=== PATIENT | female | born 1955 | race African-American/Black ===

== ENCOUNTER → 2017-02-12 | Outpatient (CLI) | payer BC ==
[~2017-02-12] MED LIST: BNC/20125 PO; MONT1TAB3 PO
== END | disposition home or self-care (01) ==
LOC: C.PAPS 16:38
PROVIDERS: ATTEND Obstetrics & Gynecology
DX: Z01.419 Encounter for gynecological examination (general) (routine) without abnormal findings (principal)

== ENCOUNTER 2018-01-04 15:57 | Inpatient (IN) | payer BC, OTHER ==
[~2018-01-04] VITALS: Ht 162.6 cm; Wt 106.3 kg
[2018-01-04] MEDS ORDERED: SODIUM CHLORIDE 0.9% 1000ML 1,000 ML IV STA (16:21)
[2018-01-04] MEDS ORDERED: ACETAMINOPHEN 500 MG TAB PO STA (16:45)
--- NOTE | 2018-01-04 17:00 | EMERGENCY ROOM VISIT NOTE ---
History Report prepared by Ana: Derek Renee Under the Supervision of: Dr. Cassi Breaux M.D. First contact with patient: 16:21 Chief Complaint: REFERRED BY DOCTOR Stated Complaint: DYHYDRATED, REF BY DOC History of Present Illness The patient is a 62 year old female who presents to the Emergency Room with complaints of constant weakness beginning a few days ago. She currently rates her discomfort a 7/10 in severity. The patient states she was in [place] ( [facility] and [facility]) for three weeks. She reports she returned recently and has felt sick since. The patient notes she has been very weak and sometimes needs assistance getting standing up. She states she has a headache, and her nose is draining into her stomach. The patient reports she has abdominal discomfort from the drainage. She notes she vomited three days ago, and she has not vomited since. The patient states she was evaluated by her PCP this morning and was told she had a fever of 103. She reports she took her blood pressure medication and sinus medication. The patient notes she did not take Tylenol because she was afraid to take too much medication at one time because she is nauseous. She states she grew up in the areas she was visiting, and she has been immunized. She reports she still has her gallbladder, and she occasionally has pain there. The patient denies shortness of breath, passing blood in stool, diarrhea, coughing, trouble urinating, and burning with urination. Source of History: patient Onset: a few days ago Symptom Intensity: 7/10 Quality: other (weakness) Timing: constant Associated Symptoms: + fevers, + headache, + vomiting, No cough, No SOB, No diarrhea, No urinary symptoms Note: Associated symptoms: post nasal drip Denies: blood in stool Review of Systems See HPI for pertinent positives & negatives. A total of 10 systems reviewed and were otherwise negative. Past Medical & Surgical Medical Problems: (1) HTN (hypertension) (2) Sepsis Family History Patient reports no known family medical history. Social History Smoking Status: Never Smoker Marital Status: Housing Status: lives with significant other Occupation Status: employed Current/Historical Medications Scheduled Montelukast Sodium (Singulair), 10 MG PO DAILY Olmesartan/Hctz (Benicar Hct 20/12.5), 1 TAB PO DAILY Allergies Coded Allergies: Metronidazole (Verified Adverse Reaction, Mild, GI DISTRESS, 2/10/25) No Known Allergies (Verified , 01/06/14) Physical Exam Vital Signs Date Time Temp Pulse Resp B/P (MAP) Pulse Ox O2 Delivery O2 Flow Rate FiO2 01/04/18 21:19 80 20 108/75 97 Room Air 01/04/18 19:32 86 01/04/18 19:27 37.3 86 18 100/73 94 Room Air 01/04/18 18:36 91 16 107/66 95 Room Air 01/04/18 17:18 101 18 151/93 91 Room Air 01/04/18 16:01 39.3 117 20 123/82 94 Room Air Physical Exam Vital signs reviewed. Noted to be febrile. General: Well-appearing 62 year old female, in no significant distress. HEENT: No scleral icterus, PERRLA, neck supple. Atraumatic. Cardiovascular: Tachycardic rate and regular rhythm, no extra sounds. Pulmonary: Crackles at the bases bilaterally, normal work of breathing. Abdomen: Soft, mild RUQ tender, nondistended, positive bowel sounds. Musculoskeletal: Atraumatic, no peripheral edema. Neurologic: Patient awake alert and oriented x 3, full strength in all 4 extremities. Cranial nerves 2 through 12 grossly intact. Skin: Warm, dry, no rash Medical Decision & Procedures ER Provider Diagnostic Interpretation: Radiology results as stated below per my review and radiologist interpretation: CHEST ONE VIEW PORTABLE HISTORY: 62 years-old Female fever acute fever COMPARISON: None available TECHNIQUE: Portable AP view of the chest FINDINGS: Patient is slightly rotated to the right. Cardiac silhouette is enlarged. There is widening of the upper mediastinum. No pneumothorax or large pleural effusion. Subsegmental bibasilar opacities. Mild pulmonary vascular congestion without overt pulmonary edema. IMPRESSION: 1. Cardiomegaly with pulmonary vascular congestion. 2. Subsegmental bibasilar opacities suggest atelectasis with pneumonitis also within the differential. The above report was generated using voice recognition software. It may contain grammatical, syntax or spelling errors. Electronically signed by: Rian Bangura M.D. 01/04/2018 5:15 PM Dictated Date/Time: 01/04/2018 5:13 PM SINUSES-MAXILLOFACIAL W/O HISTORY: 62 years-old Female sinusitis, fever acute sinusitis with fever COMPARISON: None available TECHNIQUE: Multiple axial CT images of the paranasal sinuses and maxillofacial bones were obtained without use of IV contrast. A dose lowering technique was used consistent with the principals of YESENIA. FINDINGS: Imaged intracranial structures demonstrate no acute abnormality. Tonsillar calcifications are incidentally noted. Note is made of disconjugate gaze. The bilateral orbits and globes are otherwise unremarkable. Soft tissues are within normal limits. No calvarial fracture identified. The mastoid air cells and middle ear cavities are clear. There is mild mucoperiosteal thickening about the maxillary and ethmoid sinuses. The frontal sinuses and sphenoid sinuses are generally clear. Mild mucosal thickening about the nasal turbinates. Minimal leftward spurring about the nasal septum. There is been prior bilateral maxillary antrostomy. Frontoethmoidal and sphenoethmoidal recesses are patent. There is no acute facial bone fracture or dislocation identified. There are degenerative changes noted about the bilateral temporal mandibular joints. IMPRESSION: 1. Mild maxillary and ethmoid sinus disease. 2. Prior bilateral maxillary antrostomy. 3. Patency of the sinus outflow tracts. 4. Incidental note is made of bilateral palatine tonsilliths. The above report was generated using voice recognition software. It may contain grammatical, syntax or spelling errors. Electronically signed by: Rian Bangura M.D. 01/04/2018 6:10 PM Dictated Date/Time: 01/04/2018 6:02 PM ABDOMINAL ULTRASOUND, RIGHT UPPER QUADRANT HISTORY: ] Quadrant abdominal pain. cholecystitis. COMPARISON: None. FINDINGS: Pancreas: Obscured by overlying bowel gas. Liver: Unremarkable. Gallbladder: No gallbladder wall thickening. Trace sludge versus small stones within the gallbladder. CBD: 2 mm. Right kidney: No hydronephrosis. IMPRESSION: 1. No gallbladder wall thickening. Trace sludge versus small stones within the gallbladder. 2. Normal caliber common bile duct. Electronically signed by: Deepak England M.D. 01/04/2018 7:13 PM Dictated Date/Time: 01/04/2018 7:12 PM Laboratory Results Test 01/04/18 16:31 01/04/18 16:35 01/04/18 17:07 01/04/18 17:19 Toxic Vacuolation 1+ Peripheral Blood Smear Path Consult Magnesium Level 2.1 mg/dl (1.8-2.4) Direct Bilirubin 2.3 mg/dl (0-0.2) Total Creatine Kinase 676 U/L (26-192) Lipase 231 U/L (73-393) Thyroid Stimulating Hormone (TSH) 0.454 uIu/ml (0.300-4.500) Influenza Type A (RT-PCR) Neg for Influ A (NEG) Influenza Type B (RT-PCR) Neg for Influ B (NEG) Bedside Lactic Acid Venous 1.75 mmol/L (0.90-1.70) Urine Color DK YELLOW Urine Appearance CLOUDY (CLEAR) Urine pH 6.0 (4.5-7.5) Urine Specific Green 1.023 (1.000-1.030) Urine Protein 1+ (NEG) Urine Glucose (UA) NEG (NEG) Urine Ketones 1+ (NEG) Urine Occult Blood 3+ (NEG) Urine Nitrite POS (NEG) Urine Bilirubin NEG (NEG) Urine Urobilinogen POS (NEG) Urine Leukocyte Esterase MODERATE (NEG) Urine WBC (Auto) 10-30 /hpf (0-5) Urine RBC (Auto) 5-10 /hpf (0-4) Urine Hyaline Casts (Auto) 1-5 /lpf (0-5) Urine Epithelial Cells (Auto) >30 /lpf (0-5) Urine Bacteria (Auto) 1+ (NEG) Urine Pathogenic Casts /lpf (0) Urine Yeast (Auto) PRESENT (NONE PRSENT) Test 01/04/18 20:18 Prothrombin Time 12.8 SECONDS (9.0-12.0) Prothromb Time International Ratio 1.2 (0.9-1.1) Activated Partial Thromboplast Time 28.9 SECONDS (21.0-31.0) Partial Thromboplastin Ratio 1.1 Lactic Acid Level 1.4 mmol/L (0.4-2.0) Procalcitonin 4.35 ng/ml (0-0.5) Date/Time Source Procedure Growth Status 01/04/18 17:19 Urine , Clean Catch Urine Culture - Final MORE THAN THREE TYPES OF ORGANISMS SC... Complete Laboratory results per my review. Medications Administered Medications (Trade) Dose Ordered Sig/Osmar Route Start Time Stop Time Status Last Admin Dose Admin Sodium Chloride 1,000 ml @ 999 mls/hr Q1H1M STAT IV 01/04/18 16:21 01/04/18 17:21 DC 01/04/18 16:21 999 MLS/HR Acetaminophen 100 ml @ 400 mls/hr NOW STAT IV 01/04/18 17:01 01/04/18 17:15 DC 01/04/18 17:01 400 MLS/HR Potassium Chloride 100 ml @ 100 mls/hr NOW STAT IV 01/04/18 18:10 01/04/18 19:09 DC 01/04/18 18:31 100 MLS/HR Hydroxychloroquine Sulfate (Plaquenil Tab) 800 mg NOW ONCE PO 01/04/18 19:00 01/04/18 19:01 DC 01/04/18 20:18 800 MG Ceftriaxone Sodium (Rocephin Inj) 1 gm NOW STAT IV 01/04/18 19:10 01/04/18 19:11 DC 01/04/18 20:19 1 GM ECG Per My Interpretation Indication: vomiting, other (febrile) Rate (beats per minute): 103 Rhythm: sinus tachycardia Findings: other (Likely previous anterior infarct. T-wave abnormality anteriorly and laterally.) ED Course 1640: Past medical records reviewed. The patient was evaluated in room C05. A complete history and physical examination was performed. 1: I discussed the patient's case with Dr. Damon, [facility]. The patient can started hydroxychloroquine now and then the Primaquine as an outpatient. 1913: Upon reevaluation, the patient is resting comfortably. I discussed laboratory and radiographic results with her. She verbalized agreement of the treatment plan. The patient will be evaluated for further management and care. 1924: I discussed the patient's case with Dr. Omalley, [facility] Hospitalist. The patient will be evaluated for further management and care. Medical Decision Differential diagnoses: Influenza, other viral illness, pneumonia, urinary tract infection, metabolic abnormality, medication effect, cellulitis, meningitis, intra-abdominal source, parasitic infection. This patient was evaluated and appeared to be in no significant access was obtained and laboratory work was drawn. Patient is noted to be febrile. Blood cultures and lactate were performed. She was given IV Tylenol for fever. Lactate is normal. Chest x-ray is clear. Patient is noted to have a normal white blood cell count and thrombocytopenia to 58,000. Potassium is low and was repleted with IV potassium. UA is concerning for infection, sent for culture. IV ceftriaxone was ordered. On a thin smear, pathology, Dr. Palomares is seen less than 1% of the RBCs affected by malaria. He suspects a non- Plasmodium falciparum species, but this will be sent out for further identification. Given the region that the patient has been visiting and the findings on smear, between infectious disease, Dr. Damon and pharmacy, hydroxychloroquine was initiated. The Primaquine that is not available at this hospital can be initiated as an outpatient according to ID. The patient and were made aware of the findings. CT scan of the head and sinuses was performed due to the headache and postnasal drip complaints. There is no acute ultrasound the right upper quadrant was performed due to the elevated liver enzymes. There is no evidence of acute cholecystitis this is likely secondary to the malarial illness. The patient did have some improvement in clinical picture. Case was discussed with the hospitalist service. She will be admitted for further management. Medication Reconcilliation Current Medication List: was personally reviewed by me Blood Pressure Screening Patient's blood pressure: Normal blood pressure Blood pressure disposition: Did not require urgent referral Consults Time Called: 1813 Consulting Physician: MARIA DEL ROSARIO Diggs Returned Call: 1840 I discussed the patient's case with MARIA DEL ROSARIO Diggs. The patient can started hydroxychloroquine now and then the Primaquine as an outpatient. Additional Consults: Time Called: 1903 Consulted Physician: [facility] Hospitalist Returned Call: 1924 Additional Comments: I discussed the patient's case [facility] The patient will be evaluated for further management and care. Impression Primary Impression: Malaria Additional Impressions: Acute hepatitis Hyponatremia Hypokalemia UTI (urinary tract infection) Scribe Attestation The scribe's documentation has been prepared under my direction and personally reviewed by me in its entirety. I confirm that the note above accurately reflects all work, treatment, procedures, and medical decision making performed by me. Departure Information Dispostion Being Evaluated By Hospitalist Referrals Farrukh Asher M.D. (PCP) Patient Instructions [facility] Problem Qualifiers
[2018-01-04] MEDS ORDERED: ACETAMINOPHEN IV 100 ML IV STA (17:01)
[2018-01-04 17:15] LABS: ALBUMIN 2.7 gm/dl (3.4-5.0); CALCIUM 7.7 mg/dl (8.5-10.1); CREATININE 1.32 mg/dl (0.60-1.20); POTASSIUM 2.9 mmol/L (3.5-5.1); TOTAL PROTEIN 7.3 gm/dl (6.4-8.2)
--- NOTE | 2018-01-04 17:16 | DIAGNOSTIC IMAGING REPORT ---
CHEST ONE VIEW PORTABLE HISTORY: 62 years-old Female fever acute fever COMPARISON: None available TECHNIQUE: Portable AP view of the chest FINDINGS: Patient is slightly rotated to the right. Cardiac silhouette is enlarged. There is widening of the upper mediastinum. No pneumothorax or large pleural effusion. Subsegmental bibasilar opacities. Mild pulmonary vascular congestion without overt pulmonary edema. IMPRESSION: 1. Cardiomegaly with pulmonary vascular congestion. 2. Subsegmental bibasilar opacities suggest atelectasis with pneumonitis also within the differential. The above report was generated using voice recognition software. It may contain grammatical, syntax or spelling errors. Electronically signed by: Rian Bangura M.D. 01/04/2018 5:15 PM Dictated Date/Time: 01/04/2018 5:13 PM
[2018-01-04 17:28] LABS: HEMATOCRIT 41.4 % (37-47); HEMOGLOBIN 14.5 g/dL (12.0-16.0); MEAN CELL VOLUME 87.2 fL (80-100); MEAN CORPUSCULAR HEMOGLOBIN 30.5 pg (25-34); RED CELL DISTRIBUTION WIDTH CV 12.8 % (11.5-14.5); RED CELL DISTRIBUTION WIDTH SD 41.2 fL (36.4-46.3)
[2018-01-04 17:31] LABS: MEAN PLATELET VOLUME 12.3 fL (7.4-10.4); PLATELET COUNT 58 K/uL (130-400)
[2018-01-04 17:35] LABS: BASO % 1.3 %; BASO ABS # 0.08 K/uL (0-0.2); EOS % 0.8 %; EOS ABS # 0.05 K/uL (0-0.5); IG# 0.02 K/uL (0.00-0.02); LYMPH % 7.7 %; LYMPH ABS # 0.48 K/uL (1.2-3.4); MONO % 15.6 %; MONO ABS # 0.97 K/uL (0.11-0.59); NEUT % 74.3 %
[2018-01-04] MEDS ORDERED: POTASSIUM CHLR 10 MEQ / WTR 100 ML IV STA (18:10)
[2018-01-04 18:11] LABS: INFLUENZA A PCR Neg for Influ A (NEG); INFLUENZA B PCR Neg for Influ B (NEG)
--- NOTE | 2018-01-04 18:11 | DIAGNOSTIC IMAGING REPORT ---
SINUSES-MAXILLOFACIAL W/O HISTORY: 62 years-old Female sinusitis, fever acute sinusitis with fever COMPARISON: None available TECHNIQUE: Multiple axial CT images of the paranasal sinuses and maxillofacial bones were obtained without use of IV contrast. A dose lowering technique was used consistent with the principals of ALARA. FINDINGS: Imaged intracranial structures demonstrate no acute abnormality. Tonsillar calcifications are incidentally noted. Note is made of disconjugate gaze. The bilateral orbits and globes are otherwise unremarkable. Soft tissues are within normal limits. No calvarial fracture identified. The mastoid air cells and middle ear cavities are clear. There is mild mucoperiosteal thickening about the maxillary and ethmoid sinuses. The frontal sinuses and sphenoid sinuses are generally clear. Mild mucosal thickening about the nasal turbinates. Minimal leftward spurring about the nasal septum. There is been prior bilateral maxillary antrostomy. Frontoethmoidal and sphenoethmoidal recesses are patent. There is no acute facial bone fracture or dislocation identified. There are degenerative changes noted about the bilateral temporal mandibular joints. IMPRESSION: 1. Mild maxillary and ethmoid sinus disease. 2. Prior bilateral maxillary antrostomy. 3. Patency of the sinus outflow tracts. 4. Incidental note is made of bilateral palatine tonsilliths. The above report was generated using voice recognition software. It may contain grammatical, syntax or spelling errors. Electronically signed by: Rian Bangura M.D. 01/04/2018 6:10 PM Dictated Date/Time: 01/04/2018 6:02 PM
--- NOTE | 2018-01-04 18:54 | Pharmacy Progress Note ---
ED Pharmacist Progress Note Date of Service: Jan 04, 2018. Suspected malaria with P. vivax or P. ovale recommended treatment per [facility] Hydroxychloroquine sulfate 800 mg po immediately, followed by 400 mg at 6, 24, and 48 hours (total dose 2000 mg) plus primaquine phosphate: 30 mg base po qd x 14 days. Pharmacy does not have primaquine per conversation Dr. Namita vargas/ Dr. Damon - to be started later.
[2018-01-04] MEDS ORDERED: HYDROXYCHLOROQUINE SULFATE 200 MG TAB PO ONE (19:00)
[2018-01-04] MEDS ORDERED: CEFTRIAXONE SOD INJ 1 GM ADDVIAL IV STA (19:10)
--- NOTE | 2018-01-04 19:14 | DIAGNOSTIC IMAGING REPORT ---
ABDOMINAL ULTRASOUND, RIGHT UPPER QUADRANT HISTORY: ] Quadrant abdominal pain. cholecystitis. COMPARISON: None. FINDINGS: Pancreas: Obscured by overlying bowel gas. Liver: Unremarkable. Gallbladder: No gallbladder wall thickening. Trace sludge versus small stones within the gallbladder. CBD: 2 mm. Right kidney: No hydronephrosis. IMPRESSION: 1. No gallbladder wall thickening. Trace sludge versus small stones within the gallbladder. 2. Normal caliber common bile duct. Electronically signed by: Deepak England M.D. 01/04/2018 7:13 PM Dictated Date/Time: 01/04/2018 7:12 PM
[2018-01-04] MEDS ORDERED: POTASSIUM CHLORIDE 10 MEQ TABCR PO ONE (20:00)
[2018-01-04] MEDS ORDERED: NSS + 20MEQ KCL 1000ML 1,000 ML IV SCH (20:15)
[2018-01-04 20:44] LABS: INR 1.2 (0.9-1.1); PTT PATIENT 28.9 SECONDS (21.0-31.0)
--- NOTE | 2018-01-04 21:35 | DIAGNOSTIC IMAGING REPORT ---
HEAD CT NONCONTRAST CT DOSE: 537.48 mGy.cm HISTORY: Headache. TECHNIQUE: Multiaxial CT images of the head were performed without the use of intravenous contrast. Automated exposure control was utilized for this study. A dose lowering technique was utilized adhering to the principles of ALARA. Comparison: None. Findings: The paranasal sinuses and mastoid air cells are clear. The calvarium and skull base are intact. The ventricles and sulci are within normal limits. There is no mass, hematoma, midline shift, or acute infarct. Impression: No acute intracranial abnormality. Electronically signed by: Deepak England M.D. 01/04/2018 9:33 PM Dictated Date/Time: 01/04/2018 9:32 PM
[2018-01-04] MEDS ORDERED: ACETAMINOPHEN 325 MG TAB PO PRN (21:45)
[2018-01-04] MEDS ORDERED: TRAMADOL HCL 50 MG TAB PO PRN (21:45)
[2018-01-04] MEDS ORDERED: POTASSIUM CHLORIDE 10 MEQ TABCR ONE (22:11)
[2018-01-04 22:30] VITALS: BP 118/83; PULSE 82; TEMP 36.9; O2SAT 95; Ht 162.6 cm; Wt 106.3 kg
--- NOTE | 2018-01-04 22:40 | HISTORY & PHYSICAL EXAMINATION ---
DATE OF ADMISSION: 01/04/2018 PRIMARY CARE DOCTOR: Dr. Ulloa CHIEF COMPLAINT: Fever, weakness. HISTORY OF PRESENT ILLNESS: History was obtained from the patient and records. Medical history significant for hypertension. Patient traveled to [facility] about 3 weeks ago to accompany her to a speaking engagement. She did not take prescribed malaria prophylaxis. Exposed to mosquitoe bites. About 2 days ago, patient felt sick on the plane en route for home. Generalized weakness, generalized headache, nasal drainage. No cough, no chest pain, no shortness of breath, emesis, upper achy abdominal discomfort. Denies bladder discomfort, but urine very dark. At the Emergency Room, Patient received ceftriaxone and Plaquenil. MEDICAL HISTORY: As above. OPERATIONS: Hysterectomy, oophorectomy, appendectomy. HOME MEDICATIONS: Include Benicar, HCTZ, Singulair. ALLERGIES: FLAGYL. FAMILY HISTORY: Hypertension. PERSONAL SOCIAL HISTORY: Nonsmoker, no chronic intake of alcoholic beverages. Retired realtor. Originally from [facility]. REVIEW OF SYSTEMS: As per HPI, all 10 systems reviewed, all other ROS negative. PHYSICAL EXAMINATION: VITAL SIGNS: Blood pressure was noted to be 130/82, pulse rate 117 later 86, RR 20, T 37 O2 sats 94 on room air. GENERAL: Noted to be obese, slightly uncomfortable, in no respiratory distress. SKIN: Normal color. Warm. HEENT: [place] palpebral conjunctivae. No ptosis. Dry mucosa. NECK: Short, supple. CHEST: Decreased effort, no tenderness. HEART: Regular rate and rhythm, no murmur. ABDOMEN: upper abdominal tenderness. Some distention. EXTREMITIES: No edema, no tenderness, no gross deformities. NEUROLOGIC: Coherent, no facial asymmetry. No gross focality. LABS: Hemoglobin was noted to be 14.5, hematocrit 46.2, platelets noted to be 58. WBC 10, Sodium 128, potassium 2.9, CO2 is 25, creatinine 1.32, glucose 127, total bilirubin 3.6, direct bili being 2.6, albumin 2.3, AST 133, ALT 112. CK 676. Peripheral smear for parasites noted malaria type organisms. No greater than 1% of erythrocytes contain a ring form organism. UA, nitrite positive. CT head no acute pathology CT abdomen pelvis colonic diverticulosis, hepatic steatosis. ASSESSMENT: 1. Sepsis multifactorial : acute malarial illness (recent travel to endemic country) possible urinary tract infection. 2. Hyponatremia, hypokalemia, ARF, secondary to illness, home meds 3. HTN, stable 4. hyperglycemia, rule out DM. 5. Thrombocytopenia secondary to sepsis . PLAN: GMF CS, IV Ceftriaxone for now for possible UTI. ID consult. RE Acute malaria (ER provider of any touch with Dr. Damon.) Antimalarial treatment as outlined by ID. (Hydroxychloroquine course plus Primaquine.) Monitor creatinine response to IVF Appropriate to hold home ACEI/diuretics until creatinine at baseline. Replace potassium Check hemoglobin A1c DVT prophylaxis, SCDs RE thrombocytopenia Full code. MTDD
[2018-01-04] MEDS ORDERED: NSS + 20MEQ KCL 1000ML 1,000 ML IV ONE (23:00)
[2018-01-04] MEDS: DOCUSATE SODIUM 100 MG CAP PO ONE (23:04)
--- NOTE | 2018-01-04 23:39 | DIAGNOSTIC IMAGING REPORT ---
ABDOMEN AND PELVIS CT WITHOUT CONTRAST CT DOSE: 1419.53 mGy.cm HISTORY: Generalized abdominal pain. TECHNIQUE: Multiaxial CT images of the abdomen and pelvis were performed without contrast. A dose lowering technique was utilized adhering to the principles of ALARA. COMPARISON STUDY: Abdominal ultrasound 01/04/2018. FINDINGS: Bibasilar linear densities consistent with subsegmental atelectasis. No pneumoperitoneum. No pneumatosis. No fractures within the visualized osseous structures. Subcentimeter nodule within the right lower inner quadrant of the breast. This likely correspond to the lymph node seen on the prior mammograms. Hepatic steatosis. The unenhanced gallbladder, spleen, pancreas, and kidneys are unremarkable. No renal or ureteral stones. No hydronephrosis. Bilateral adrenal gland thickening. No retroperitoneal lymphadenopathy. Normal caliber abdominal aorta. Normal bladder. The uterus and bilateral adnexa are unremarkable. No pelvic free fluid. Suboptimal evaluation for bowel pathology due to the lack of intravenous and oral contrast. However, there is no definite bowel wall thickening or obstruction. The appendix is not identified with certainty. However, there are no inflammatory changes at the cecal base. Scattered colonic diverticula. No evidence for diverticulitis. IMPRESSION: 1. No definite bowel wall thickening or obstruction. 2. Colonic diverticulosis. No evidence for diverticulitis. 3. Hepatic steatosis. 4. Mild bilateral adrenal gland thickening. This could be age-related. Chemical analysis could be performed to assess for adrenal insufficiency if clinically warranted. Electronically signed by: Deepak England M.D. 01/04/2018 11:37 PM Dictated Date/Time: 01/04/2018 11:25 PM
[2018-01-05] MEDS: DOCUSATE SODIUM 100 MG CAP PO ONE (00:22)
[2018-01-05] MEDS: HYDROmorphone INJ 0.5 MG/0.5 ML SYR IV PRN ×2 (00:39→04:13)
[2018-01-05] MEDS: PROCHLORPERAZINE INJ 5 MG in SYRINGE 4 ML IV PRN ×2 (04:06→20:15)
[2018-01-05 07:18] VITALS: BP 136/88; PULSE 102; TEMP 39.5; O2SAT 90
[2018-01-05] MEDS: DOCUSATE SODIUM 100 MG CAP PO SCH (07:44)
[2018-01-05] MEDS: MONTELUKAST SOD 10 MG TAB PO SCH (07:44)
[2018-01-05 08:05] LABS: ALBUMIN 2.3 gm/dl (3.4-5.0); CALCIUM 7.3 mg/dl (8.5-10.1); CREATININE 1.06 mg/dl (0.60-1.20); TOTAL PROTEIN 6.4 gm/dl (6.4-8.2)
[2018-01-05 08:19] LABS: HEMOGLOBIN A1C 6.3 % (4.5-5.6)
[2018-01-05 08:33] LABS: POTASSIUM 3.7 mmol/L (3.5-5.1)
[2018-01-05 08:56] VITALS: TEMP 39.4
[2018-01-05 08:56] LABS: HEMATOCRIT 39.4 % (37-47); HEMOGLOBIN 13.9 g/dL (12.0-16.0); MEAN CELL VOLUME 87.6 fL (80-100); MEAN CORPUSCULAR HEMOGLOBIN 30.9 pg (25-34); MEAN CORPUSCULAR HGB CONC 35.3 g/dl (32-36); PLATELET COUNT 37 K/uL (130-400); RED CELL DISTRIBUTION WIDTH CV 13.1 % (11.5-14.5); RED CELL DISTRIBUTION WIDTH SD 42.1 fL (36.4-46.3); WHITE BLOOD COUNT 6.49 K/uL (4.8-10.8)
[2018-01-05 08:57] LABS: BASO % 0.6 %; BASO ABS # 0.04 K/uL (0-0.2); EOS ABS # 0.13 K/uL (0-0.5); IG# 0.05 K/uL (0.00-0.02); LYMPH % 8.2 %; LYMPH ABS # 0.53 K/uL (1.2-3.4); MONO % 6.3 %; MONO ABS # 0.41 K/uL (0.11-0.59); NEUT % 82.1 %; NEUT ABS # 5.33 K/uL (1.4-6.5)
[2018-01-05] MEDS ORDERED: ACETAMINOPHEN IV 650 MG in EMPTY BAG 0 ML IV ONE (09:00)
--- NOTE | 2018-01-05 11:12 | Progress Note ---
Medicine Progress Note Date & Time of Visit: Jan 05, 2018 at 10:24. Subjective Pt was seen and examined Lying in bed with no distress Pt said that she feels fine She said that she does have a headache She said that she does feel nausea Denies any chest pain, palpitation, dizziness and SOB Objective Last 8 Hrs Date Time Temp Pulse Resp B/P (MAP) Pulse Ox O2 Delivery O2 Flow Rate FiO2 01/05/18 08:56 39.4 01/05/18 08:15 Room Air 01/05/18 07:18 39.5 102 20 136/88 (104) 90 Room Air Physical Exam: General- No acute distress Head- atraumatic Eyes- PERRL, EOMI ENT- oropharynx clear Neck- supple, no JVD Lungs- clear to auscultation Heart- regular rhythm; no murmur Abdomen- normal bowel sounds, soft Extremities- no pretibial edema Neuro- alert, oriented x 3; PERRL, EOMI Skin- warm & dry Laboratory Results: Last 24 Hours Test 01/04/18 16:31 01/04/18 16:35 01/04/18 17:07 01/04/18 17:19 White Blood Count 6.20 K/uL Red Blood Count 4.75 M/uL Hemoglobin 14.5 g/dL Hematocrit 41.4 % Mean Corpuscular Volume 87.2 fL Mean Corpuscular Hemoglobin 30.5 pg Mean Corpuscular Hemoglobin Concent 35.0 g/dl Platelet Count 58 K/uL Mean Platelet Volume 12.3 fL Neutrophils (%) (Auto) 74.3 % Lymphocytes (%) (Auto) 7.7 % Monocytes (%) (Auto) 15.6 % Eosinophils (%) (Auto) 0.8 % Basophils (%) (Auto) 1.3 % Neutrophils # (Auto) 4.60 K/uL Lymphocytes # (Auto) 0.48 K/uL Monocytes # (Auto) 0.97 K/uL Eosinophils # (Auto) 0.05 K/uL Basophils # (Auto) 0.08 K/uL RDW Standard Deviation 41.2 fL RDW Coefficient of Variation 12.8 % Immature Granulocyte % (Auto) 0.3 % Immature Granulocyte # (Auto) 0.02 K/uL Toxic Vacuolation 1+ Platelet Estimate DECREASED Peripheral Blood Smear Path Consult Sodium Level 128 mmol/L Potassium Level 2.9 mmol/L Chloride Level 93 mmol/L Carbon Dioxide Level 25 mmol/L Anion Gap 10.0 mmol/L Blood Urea Nitrogen 19 mg/dl Creatinine 1.32 mg/dl Est Creatinine Clear Calc Drug Dose 46.4 ml/min Estimated GFR () 49.3 Estimated GFR (Non- 42.5 BUN/Creatinine Ratio 14.2 Random Glucose 127 mg/dl Calcium Level 7.7 mg/dl Magnesium Level 2.1 mg/dl Total Bilirubin 3.6 mg/dl Direct Bilirubin 2.3 mg/dl Aspartate Amino Transf (AST/SGOT) 133 U/L Alanine Aminotransferase (ALT/SGPT) 112 U/L Alkaline Phosphatase 83 U/L Total Creatine Kinase 676 U/L Total Protein 7.3 gm/dl Albumin 2.7 gm/dl Lipase 231 U/L Thyroid Stimulating Hormone (TSH) 0.454 uIu/ml Influenza Type A (RT-PCR) Neg for Influ A Influenza Type B (RT-PCR) Neg for Influ B Bedside Lactic Acid Venous 1.75 mmol/L Urine Color DK YELLOW Urine Appearance CLOUDY Urine pH 6.0 Urine Specific [place] 1.023 Urine Protein 1+ Urine Glucose (UA) NEG Urine Ketones 1+ Urine Occult Blood 3+ Urine Nitrite POS Urine Bilirubin NEG Urine Urobilinogen POS Urine Leukocyte Esterase MODERATE Urine WBC (Auto) 10-30 /hpf Urine RBC (Auto) 5-10 /hpf Urine Hyaline Casts (Auto) 1-5 /lpf Urine Epithelial Cells (Auto) >30 /lpf Urine Bacteria (Auto) 1+ Urine Pathogenic Casts /lpf Urine Yeast (Auto) PRESENT Test 01/04/18 20:18 01/05/18 06:41 01/05/18 07:56 01/05/18 07:57 Prothrombin Time 12.8 SECONDS Prothromb Time International Ratio 1.2 Activated Partial Thromboplast Time 28.9 SECONDS Partial Thromboplastin Ratio 1.1 Lactic Acid Level 1.4 mmol/L Procalcitonin 4.35 ng/ml Sodium Level 132 mmol/L Potassium Level mmol/L 3.7 mmol/L Chloride Level 100 mmol/L Carbon Dioxide Level 21 mmol/L Anion Gap 11.0 mmol/L Blood Urea Nitrogen 16 mg/dl Creatinine 1.06 mg/dl Est Creatinine Clear Calc Drug Dose 62.3 ml/min Estimated GFR () 64.3 Estimated GFR (Non- 55.4 BUN/Creatinine Ratio 15.5 Random Glucose 87 mg/dl Calcium Level 7.3 mg/dl Total Bilirubin 4.4 mg/dl Aspartate Amino Transf (AST/SGOT) U/L 146 U/L Alanine Aminotransferase (ALT/SGPT) 107 U/L Alkaline Phosphatase 77 U/L Total Protein 6.4 gm/dl Albumin 2.3 gm/dl Globulin 4.1 gm/dl Albumin/Globulin Ratio 0.6 White Blood Count 6.49 K/uL Red Blood Count 4.50 M/uL Hemoglobin 13.9 g/dL Hematocrit 39.4 % Mean Corpuscular Volume 87.6 fL Mean Corpuscular Hemoglobin 30.9 pg Mean Corpuscular Hemoglobin Concent 35.3 g/dl Platelet Count 37 K/uL Neutrophils (%) (Auto) 82.1 % Lymphocytes (%) (Auto) 8.2 % Monocytes (%) (Auto) 6.3 % Eosinophils (%) (Auto) 2.0 % Basophils (%) (Auto) 0.6 % Neutrophils # (Auto) 5.33 K/uL Lymphocytes # (Auto) 0.53 K/uL Monocytes # (Auto) 0.41 K/uL Eosinophils # (Auto) 0.13 K/uL Basophils # (Auto) 0.04 K/uL RDW Standard Deviation 42.1 fL RDW Coefficient of Variation 13.1 % Immature Granulocyte % (Auto) 0.8 % Immature Granulocyte # (Auto) 0.05 K/uL Estimated Average Glucose 134 mg/dl Hemoglobin A1c 6.3 % Chemistry Specimen Hemolysis Date/Time Source Procedure Growth Status 01/04/18 16:53 Blood Blood Culture Pending Received 01/04/18 16:31 Blood Parasitology Test - Final Complete 01/04/18 16:31 Blood Blood Culture Pending Received 01/04/18 17:19 Urine , Clean Catch Urine Culture Pending Received Assessment & Plan Sepsis Meet Sepsis criteria on admission Present with fever, tachycardia, UTI on admission Possible related to UTI vs Malaria Elevated prolactin on admission Lactic acid normal Starting on Rocephin and Plaquenil Blood cx and urine cx pending Continue monitor closely Acute Malaria Case discussed with Dr. 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 Unfortunately pharmacy does not have primaquine ID on board UTI UA positive for nitrite/leukocytes/bacteria Febrile with elevated procalcitonin Continue Rocephin Urine cx and blood cx pending MARCIO creatine on admission 1.3 Received IVF Creatine WNL Olmesartan/HCTZ on hold Monitor BMP Elevated Liver enzymes Due to Acute illness Liver enzymes trending down slightly Continue monitor Liver enzymes Hyponatremia Mostly due to acute illness Na on admission 132 Continue monitor Na Hyperglycemia HbA1C 6.3 Will discuss about lifestyles modification Check Hba1c in 3 to 6 months . HTN BP stable' Olmesartan/HCTZ on hold due to elevate creatine Continue monitor BMP Thrombocytopenia Secondary to malarial illness. Platelet 37 Monitor CBC DVT px on SCDs CODE STATUS FULL CODE Current Inpatient Medications: Current Inpatient Medications Medications (Trade) Dose Ordered Sig/Osmar Route Start Time Stop Time Status Last Admin Dose Admin Potassium Chloride/Sodium Chloride 1,000 ml @ 80 mls/hr [id number] ONCE IV 01/04/18 23:00 01/05/18 11:29 01/05/18 00:21 80 MLS/HR Acetaminophen (Tylenol Tab) 325 mg Q6H PRN PO 01/04/18 21:45 02/03/18 21:44 Prochlorperazine Edisylate 5 mg/ Syringe 5 ml @ 5 mls/min Q6H PRN IV 01/04/18 21:45 02/03/18 21:44 01/05/18 04:06 5 MLS/MIN Tramadol HCl (Ultram Tab) `1/2-1 tabs for pain ... Q6H PRN PO 01/04/18 21:45 02/03/18 21:44 Hydromorphone HCl (Dilaudid Inj) 0.5 mg Q3H PRN IV 01/04/18 21:45 01/18/18 21:44 01/05/18 04:13 0.5 MG Ceftriaxone Sodium 1 gm/ Dextrose 50 ml @ 100 mls/hr Q24H IV 01/05/18 20:00 01/10/18 19:59 Montelukast Sodium (Singulair Tab) 10 mg DAILY PO 01/05/18 09:00 02/04/18 08:59 01/05/18 07:44 10 MG Hydroxychloroquine Sulfate (Plaquenil Tab) 400 mg ONE ONCE PO 01/12/18 02:00 01/12/18 02:01 Hydroxychloroquine Sulfate (Plaquenil Tab) 400 mg QD@1999 PO 01/05/18 20:00 01/07/18 19:59 Docusate Sodium (coLACE CAP) 100 mg DAILY PO 01/05/18 09:00 02/04/18 08:59 01/05/18 07:44 100 MG
[2018-01-05 11:45] VITALS: TEMP 37.3
--- NOTE | 2018-01-05 15:24 | Medical Consult ---
Consultation Date of Consultation: Jan 05, 2018. Attending Physician: Mercy Hernandez M.D. Reason for Consultation: Acute malaria History of Present Illness 62-year-old female with history of hypertension, otherwise in good health travel to [place], specifically [facility] and [facility] approximately 3 weeks earlier. On the plane ride home, patient developed and headache, sinus congestion and nasal drainage, along with fever, chills, weakness, and vague upper abdominal pain. She had been prescribed malaria prophylaxis but did not take her medications. She came to the emergency department, and peripheral smear revealed the presence red cell inclusions consistent with diagnosis of malaria. Initial review the smear was reported showing non-falciparum malaria forms, but re-review showed forms consistent with foul Cipro malaria. Patient was initially started on hydroxychloroquine. She has continued with intermittent fever, denies shortness of breath, chest pain, neck stiffness. She has had some urinary frequency and mild dysuria, and has also been started on ceftriaxone for possible UTI. Past Medical/Surgical History Medical Problems: (1) Acute hepatitis Status: Acute (2) Hypokalemia Status: Acute (3) Hyponatremia Status: Acute (4) Malaria Status: Acute (5) UTI (urinary tract infection) Status: Acute Medical Problems: (1) HTN (hypertension) (2) Sepsis PSH: Hysterectomy, oophorectomy, appendectomy Family History Patient reports no known family medical history. Social History Smoking Status: Never Smoker Marital Status: Housing Status: lives with significant other Allergies Coded Allergies: Metronidazole (Verified Adverse Reaction, Mild, GI DISTRESS, 07/23/09) No Known Allergies (Verified , 01/06/14) Current Inpatient Medications Current Inpatient Medications Medications (Trade) Dose Ordered Sig/Osmar Route Start Time Stop Time Status Last Admin Dose Admin Acetaminophen (Tylenol Tab) 325 mg Q6H PRN PO 01/04/18 21:45 02/03/18 21:44 Prochlorperazine Edisylate 5 mg/ Syringe 5 ml @ 5 mls/min Q6H PRN IV 01/04/18 21:45 02/03/18 21:44 01/05/18 04:06 5 MLS/MIN Tramadol HCl (Ultram Tab) `1/2-1 tabs for pain ... Q6H PRN PO 01/04/18 21:45 02/03/18 21:44 Hydromorphone HCl (Dilaudid Inj) 0.5 mg Q3H PRN IV 01/04/18 21:45 01/18/18 21:44 01/05/18 04:13 0.5 MG Ceftriaxone Sodium 1 gm/ Dextrose 50 ml @ 100 mls/hr Q24H IV 01/05/18 20:00 01/10/18 19:59 Montelukast Sodium (Singulair Tab) 10 mg DAILY PO 01/05/18 09:00 02/04/18 08:59 01/05/18 07:44 10 MG Hydroxychloroquine Sulfate (Plaquenil Tab) 400 mg ONE ONCE PO 01/12/18 02:00 01/12/18 02:01 Hydroxychloroquine Sulfate (Plaquenil Tab) 400 mg QD@2000 PO 01/05/18 20:00 01/07/18 19:59 Docusate Sodium (coLACE CAP) 100 mg DAILY PO 01/05/18 09:00 02/04/18 08:59 01/05/18 07:44 100 MG Review of Systems Constitutional: + fever, + chills, + weakness Eyes: No problem reported ENT: + nasal symptoms Respiratory: No problem reported Cardiovascular: No problem reported Abdomen: + pain, + nausea, No diarrhea Musculoskeletal: No problem reported Genitourinary - Female: + dysuria, + urinary frequency Neurologic: No problem reported Psychiatric: No problem reported Endocrine: No problem reported Hematologic / Lymphatic: No problem reported Integumentary: No problem reported Allergic / Immunologic: No problem reported Physical Exam Date Time Temp Pulse Resp B/P (MAP) Pulse Ox O2 Delivery O2 Flow Rate FiO2 01/05/18 11:45 37.3 01/05/18 08:56 39.4 01/05/18 08:15 Room Air 01/05/18 07:18 39.5 102 20 136/88 (104) 90 Room Air 01/05/18 00:15 Room Air 01/04/18 22:30 36.9 82 16 118/83 95 Room Air 01/04/18 22:16 36.3 78 18 116/80 96 01/04/18 21:19 80 20 108/75 97 Room Air 01/04/18 19:32 86 01/04/18 19:27 37.3 86 18 100/73 94 Room Air 01/04/18 18:36 91 16 107/66 95 Room Air 01/04/18 17:18 101 18 151/93 91 Room Air 01/04/18 16:01 39.3 117 20 123/82 94 Room Air General Appearance: WD/WN, no apparent distress Head: normocephalic, atraumatic Eyes: normal inspection, EOMI, sclerae normal ENT: normal ENT inspection, hearing grossly normal, pharynx normal Neck: supple, no adenopathy, thyroid normal, trachea midline Respiratory/Chest: chest non-tender, lungs clear, normal breath sounds, no respiratory distress Cardiovascular: regular rate, rhythm, no gallop, no murmur Abdomen/GI: normal bowel sounds, non tender, soft, no organomegaly Back: normal inspection, no CVA tenderness Extremities/Musculoskelatal: normal inspection, no calf tenderness, non-tender Neurologic/Psych: alert, normal mood/affect, oriented x 3 Skin: normal color, warm/dry, no rash Lymphatic: no adenopathy Laboratory Results [~ rep ct add3]] CHEST ONE VIEW PORTABLE HISTORY: 82 years-old Female tachycardia, chest pain acute atypical chest pain COMPARISON: Chest radiograph 09/08/2017 TECHNIQUE: Portable AP view of the chest FINDINGS: Enlargement of the cardiac silhouette redemonstrated. Calcification of the aorta. Mild pulmonary vascular congestion without overt pulmonary edema. Chronic left hemidiaphragmatic elevation. There are subsegmental bibasilar opacities with suggested trace bilateral pleural effusions. No pneumothorax. Degenerative changes of the shoulders and spine. IMPRESSION: 1. Cardiomegaly with mild pulmonary vascular congestion. 2. Subsegmental bibasilar opacities suggest atelectasis with trace bilateral pleural effusions. 3. Chronic left hemidiaphragm elevation The above report was generated using voice recognition software. It may contain grammatical, syntax or spelling errors. Last 24 Hours Test 01/04/18 16:31 01/04/18 16:35 01/04/18 17:07 01/04/18 17:19 White Blood Count 6.20 K/uL Red Blood Count 4.75 M/uL Hemoglobin 14.5 g/dL Hematocrit 41.4 % Mean Corpuscular Volume 87.2 fL Mean Corpuscular Hemoglobin 30.5 pg Mean Corpuscular Hemoglobin Concent 35.0 g/dl Platelet Count 58 K/uL Mean Platelet Volume 12.3 fL Neutrophils (%) (Auto) 74.3 % Lymphocytes (%) (Auto) 7.7 % Monocytes (%) (Auto) 15.6 % Eosinophils (%) (Auto) 0.8 % Basophils (%) (Auto) 1.3 % Neutrophils # (Auto) 4.60 K/uL Lymphocytes # (Auto) 0.48 K/uL Monocytes # (Auto) 0.97 K/uL Eosinophils # (Auto) 0.05 K/uL Basophils # (Auto) 0.08 K/uL RDW Standard Deviation 41.2 fL RDW Coefficient of Variation 12.8 % Immature Granulocyte % (Auto) 0.3 % Immature Granulocyte # (Auto) 0.02 K/uL Toxic Vacuolation 1+ Platelet Estimate DECREASED Peripheral Blood Smear Path Consult Sodium Level 128 mmol/L Potassium Level 2.9 mmol/L Chloride Level 93 mmol/L Carbon Dioxide Level 25 mmol/L Anion Gap 10.0 mmol/L Blood Urea Nitrogen 19 mg/dl Creatinine 1.32 mg/dl Est Creatinine Clear Calc Drug Dose 46.4 ml/min Estimated GFR () 49.3 Estimated GFR (Non- 42.5 BUN/Creatinine Ratio 14.2 Random Glucose 127 mg/dl Calcium Level 7.7 mg/dl Magnesium Level 2.1 mg/dl Total Bilirubin 3.6 mg/dl Direct Bilirubin 2.3 mg/dl Aspartate Amino Transf (AST/SGOT) 133 U/L Alanine Aminotransferase (ALT/SGPT) 112 U/L Alkaline Phosphatase 83 U/L Total Creatine Kinase 676 U/L Total Protein 7.3 gm/dl Albumin 2.7 gm/dl Lipase 231 U/L Thyroid Stimulating Hormone (TSH) 0.454 uIu/ml Influenza Type A (RT-PCR) Neg for Influ A Influenza Type B (RT-PCR) Neg for Influ B Bedside Lactic Acid Venous 1.75 mmol/L Urine Color DK YELLOW Urine Appearance CLOUDY Urine pH 6.0 Urine Specific [place] 1.023 Urine Protein 1+ Urine Glucose (UA) NEG Urine Ketones 1+ Urine Occult Blood 3+ Urine Nitrite POS Urine Bilirubin NEG Urine Urobilinogen POS Urine Leukocyte Esterase MODERATE Urine WBC (Auto) 10-30 /hpf Urine RBC (Auto) 5-10 /hpf Urine Hyaline Casts (Auto) 1-5 /lpf Urine Epithelial Cells (Auto) >30 /lpf Urine Bacteria (Auto) 1+ Urine Pathogenic Casts /lpf Urine Yeast (Auto) PRESENT Test 01/04/18 20:18 01/05/18 06:41 01/05/18 07:56 01/05/18 07:57 Prothrombin Time 12.8 SECONDS Prothromb Time International Ratio 1.2 Activated Partial Thromboplast Time 28.9 SECONDS Partial Thromboplastin Ratio 1.1 Lactic Acid Level 1.4 mmol/L Procalcitonin 4.35 ng/ml Sodium Level 132 mmol/L Potassium Level mmol/L 3.7 mmol/L Chloride Level 100 mmol/L Carbon Dioxide Level 21 mmol/L Anion Gap 11.0 mmol/L Blood Urea Nitrogen 16 mg/dl Creatinine 1.06 mg/dl Est Creatinine Clear Calc Drug Dose 62.3 ml/min Estimated GFR () 64.3 Estimated GFR (Non- 55.4 BUN/Creatinine Ratio 15.5 Random Glucose 87 mg/dl Calcium Level 7.3 mg/dl Total Bilirubin 4.4 mg/dl Aspartate Amino Transf (AST/SGOT) U/L 146 U/L Alanine Aminotransferase (ALT/SGPT) 107 U/L Alkaline Phosphatase 77 U/L Total Protein 6.4 gm/dl Albumin 2.3 gm/dl Globulin 4.1 gm/dl Albumin/Globulin Ratio 0.6 White Blood Count 6.49 K/uL Red Blood Count 4.50 M/uL Hemoglobin 13.9 g/dL Hematocrit 39.4 % Mean Corpuscular Volume 87.6 fL Mean Corpuscular Hemoglobin 30.9 pg Mean Corpuscular Hemoglobin Concent 35.3 g/dl Platelet Count 37 K/uL Neutrophils (%) (Auto) 82.1 % Lymphocytes (%) (Auto) 8.2 % Monocytes (%) (Auto) 6.3 % Eosinophils (%) (Auto) 2.0 % Basophils (%) (Auto) 0.6 % Neutrophils # (Auto) 5.33 K/uL Lymphocytes # (Auto) 0.53 K/uL Monocytes # (Auto) 0.41 K/uL Eosinophils # (Auto) 0.13 K/uL Basophils # (Auto) 0.04 K/uL RDW Standard Deviation 42.1 fL RDW Coefficient of Variation 13.1 % Immature Granulocyte % (Auto) 0.8 % Immature Granulocyte # (Auto) 0.05 K/uL Blood Smear Review Estimated Average Glucose 134 mg/dl Hemoglobin A1c 6.3 % Chemistry Specimen Hemolysis Assessment & Plan Patient with acute falciparum malaria, with low level of parasitemia. Given lack of availability of artemensin derivatives, patient will be treated with atovaquone-proguanil with 1000 milligrams of the atovaquone component daily for 3 days. Patient should continue on ceftriaxone for possible urinary tract infection pending final identification sensitivity of urine culture.
[2018-01-05 15:27] VITALS: BP 119/82; PULSE 100; TEMP 38.6; O2SAT 97
[2018-01-05] MEDS: PROGUANIL HCL PO SCH (15:59)
[2018-01-05] MEDS: ATOVAQUONE PO SCH (15:59)
[2018-01-05] MEDS ORDERED: HYDROXYCHLOROQUINE SULFATE 200 MG TAB PO SCH (20:00)
[2018-01-05] MEDS ORDERED: PROGUANIL HCL PO ONE (20:07)
[2018-01-05] MEDS ORDERED: ATOVAQUONE PO ONE (20:07)
[2018-01-05] MEDS: CEFTRIAXONE SOD INJ 1 GM in DEXTROSE 5% ADD-VANTAGE 50ML 50 ML IV SCH (20:15)
[2018-01-06] VITALS: BP 99/67; PULSE 91; TEMP 38.3; O2SAT 94
[2018-01-06] MEDS ORDERED: NSS + 20MEQ KCL 1000ML 1,000 ML IV ONE (02:00)
[2018-01-06 02:05] VITALS: TEMP 38.6
[2018-01-06] MEDS: ACETAMINOPHEN IV 650 MG in EMPTY BAG 0 ML IV PRN ×2 (02:44→23:43)
[2018-01-06 07:13] LABS: ALBUMIN 2.1 gm/dl (3.4-5.0); CALCIUM 7.4 mg/dl (8.5-10.1); CREATININE 1.48 mg/dl (0.60-1.20); POTASSIUM 3.7 mmol/L (3.5-5.1); TOTAL PROTEIN 5.7 gm/dl (6.4-8.2)
[2018-01-06 07:27] VITALS: BP 114/81; PULSE 82; TEMP 37; O2SAT 94
[2018-01-06 07:29] LABS: HEMATOCRIT 34.4 % (37-47); HEMOGLOBIN 12.2 g/dL (12.0-16.0); MEAN CELL VOLUME 86.2 fL (80-100); MEAN CORPUSCULAR HEMOGLOBIN 30.6 pg (25-34); MEAN CORPUSCULAR HGB CONC 35.5 g/dl (32-36); MEAN PLATELET VOLUME 12.8 fL (7.4-10.4); PLATELET COUNT 40 K/uL (130-400); RED CELL DISTRIBUTION WIDTH CV 13.3 % (11.5-14.5); RED CELL DISTRIBUTION WIDTH SD 42.5 fL (36.4-46.3); WHITE BLOOD COUNT 6.79 K/uL (4.8-10.8)
[2018-01-06 07:30] LABS: BASO % 2.9 %; EOS % 5.6 %; EOS ABS # 0.38 K/uL (0-0.5); IG# 0.07 K/uL (0.00-0.02); LYMPH ABS # 1.83 K/uL (1.2-3.4); MONO % 7.4 %; NEUT % 56.1 %; NEUT ABS # 3.81 K/uL (1.4-6.5)
[2018-01-06] MEDS: SODIUM CHLORIDE 0.9% 1000ML 1,000 ML IV SCH ×2 (08:14→21:37)
[2018-01-06] MEDS: MONTELUKAST SOD 10 MG TAB PO SCH (08:15)
[2018-01-06] MEDS: DOCUSATE SODIUM 100 MG CAP PO SCH (08:15)
[2018-01-06 15:02] VITALS: BP 131/84; PULSE 89; TEMP 37.3; O2SAT 93
[2018-01-06] MEDS: PROCHLORPERAZINE INJ 5 MG in SYRINGE 4 ML IV PRN (15:51)
[2018-01-06] MEDS: PROGUANIL HCL PO SCH (15:52)
[2018-01-06] MEDS: ATOVAQUONE PO SCH (15:52)
--- NOTE | 2018-01-06 17:03 | Progress Note ---
Medicine Progress Note Date & Time of Visit: Jan 06, 2018 at 16:50. Subjective Pt was seen and examined Lying in bed with no distress Pt had a fever last night and early this morning She said that she had nausea yesterday after taking the malaria tab Denies any chest pain, palpitation, dizziness and SOB Objective Last 8 Hrs Date Time Temp Pulse Resp B/P (MAP) Pulse Ox O2 Delivery O2 Flow Rate FiO2 01/06/18 16:00 Room Air 01/06/18 15:02 37.3 89 16 131/84 (100) 93 Room Air Physical Exam: General- No acute distress Head- atraumatic Eyes- PERRL, EOMI ENT- oropharynx clear Neck- supple, no JVD Lungs- clear to auscultation Heart- regular rhythm; no murmur Abdomen- normal bowel sounds, soft Extremities- no pretibial edema Neuro- alert, oriented x 3; PERRL, EOMI Skin- warm & dry Laboratory Results: Last 24 Hours Test 01/06/18 06:24 White Blood Count 6.79 K/uL Red Blood Count 3.99 M/uL Hemoglobin 12.2 g/dL Hematocrit 34.4 % Mean Corpuscular Volume 86.2 fL Mean Corpuscular Hemoglobin 30.6 pg Mean Corpuscular Hemoglobin Concent 35.5 g/dl Platelet Count 40 K/uL Mean Platelet Volume 12.8 fL Neutrophils (%) (Auto) 56.1 % Lymphocytes (%) (Auto) 27.0 % Monocytes (%) (Auto) 7.4 % Eosinophils (%) (Auto) 5.6 % Basophils (%) (Auto) 2.9 % Neutrophils # (Auto) 3.81 K/uL Lymphocytes # (Auto) 1.83 K/uL Monocytes # (Auto) 0.50 K/uL Eosinophils # (Auto) 0.38 K/uL Basophils # (Auto) 0.20 K/uL RDW Standard Deviation 42.5 fL RDW Coefficient of Variation 13.3 % Immature Granulocyte % (Auto) 1.0 % Immature Granulocyte # (Auto) 0.07 K/uL Platelet Estimate DECREASED Sodium Level 136 mmol/L Potassium Level 3.7 mmol/L Chloride Level 104 mmol/L Carbon Dioxide Level 23 mmol/L Anion Gap 9.0 mmol/L Blood Urea Nitrogen 23 mg/dl Creatinine 1.48 mg/dl Est Creatinine Clear Calc Drug Dose 44.6 ml/min Estimated GFR () 42.9 Estimated GFR (Non- 37.0 BUN/Creatinine Ratio 15.7 Random Glucose 94 mg/dl Calcium Level 7.4 mg/dl Total Bilirubin 4.7 mg/dl Aspartate Amino Transf (AST/SGOT) 127 U/L Alanine Aminotransferase (ALT/SGPT) 102 U/L Alkaline Phosphatase 69 U/L Total Protein 5.7 gm/dl Albumin 2.1 gm/dl Globulin 3.6 gm/dl Albumin/Globulin Ratio 0.6 Assessment & Plan Sepsis Meet Sepsis criteria on admission Present with fever, tachycardia, UTI on admission Possible related to UTI vs Malaria Elevated prolactin on admission Lactic acid normal Was febrile early this morning Blood cx no growth Urine cx growth more than 3 organisms (contamination) Denies any dysuria, except tea colored urine. Continue monitor closely Acute Malaria Case discussed with Dr. 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 ID on board UTI UA positive for nitrite/leukocytes/bacteria Febrile with elevated procalcitonin On IV Rocephin Urine cx growth more than 3 organisms (contamination) Denies any dysuria, except tea colored urine. Will discuss with ID to consider to d/c Rocephin MARCIO creatine on admission 1.3 Creatine increase to 1.4 Olmesartan/HCTZ on hold Continue IVF Monitor BMP Elevated Liver enzymes Due to Acute illness Liver enzymes trending down slightly Continue monitor Liver enzymes Hyponatremia Mostly due to acute illness Na on admission 132 Na 136 today Continue monitor Na Hyperglycemia HbA1C 6.3 Will discuss about lifestyles modification Check Hba1c in 3 to 6 months . HTN BP stable' Olmesartan/HCTZ on hold due to elevate creatine Continue monitor BMP Thrombocytopenia Secondary to malarial illness. Platelet 40 Monitor CBC DVT px on SCDs CODE STATUS FULL CODE Current Inpatient Medications: Current Inpatient Medications Medications (Trade) Dose Ordered Sig/Osmar Route Start Time Stop Time Status Last Admin Dose Admin Acetaminophen (Tylenol Tab) 325 mg Q6H PRN PO 01/04/18 21:45 02/03/18 21:44 Prochlorperazine Edisylate 5 mg/ Syringe 5 ml @ 5 mls/min Q6H PRN IV 01/04/18 21:45 8/19/18 21:44 01/06/18 15:51 5 MLS/MIN Tramadol HCl (Ultram Tab) `1/2-1 tabs for pain ... Q6H PRN PO 01/04/18 21:45 02/03/18 21:44 Hydromorphone HCl (Dilaudid Inj) 0.5 mg Q3H PRN IV 01/04/18 21:45 01/18/18 21:44 01/05/18 04:13 0.5 MG Ceftriaxone Sodium 1 gm/ Dextrose 50 ml @ 100 mls/hr Q24H IV 01/05/18 20:00 01/10/18 19:59 01/05/18 20:15 100 MLS/HR Montelukast Sodium (Singulair Tab) 10 mg DAILY PO 01/05/18 09:00 02/04/18 08:59 01/06/18 08:15 10 MG Hydroxychloroquine Sulfate (Plaquenil Tab) 400 mg ONE ONCE PO 01/12/18 02:00 01/12/18 02:01 Docusate Sodium (coLACE CAP) 100 mg DAILY PO 01/05/18 09:00 02/04/18 08:59 01/06/18 08:15 100 MG Atovaquone/ Proguanil (Malarone 62.5/ 25 Mg Tab) 16 tab DAILY@1600 PO 01/05/18 16:00 01/08/18 15:59 01/06/18 15:52 16 TAB Acetaminophen 650 mg/Empty Bag 65 ml @ 260 mls/hr Q6H PRN IV 01/06/18 01:15 02/05/18 01:14 01/06/18 02:44 260 MLS/HR Sodium Chloride 1,000 ml @ 80 mls/hr [id number] IV 01/06/18 07:45 02/05/18 07:44 01/06/18 08:14 80 MLS/HR
[2018-01-06] MEDS ORDERED: SODIUM CHLORIDE 0.9% 1000ML 1,000 ML IV SCH (17:15)
[2018-01-06] MEDS: CEFTRIAXONE SOD INJ 1 GM in DEXTROSE 5% ADD-VANTAGE 50ML 50 ML IV SCH (21:43)
[2018-01-06 23:04] VITALS: BP 136/87; PULSE 127; TEMP 38.8; O2SAT 95
[2018-01-07] VITALS (7 sets, daily range): BP systolic 113–138; BP diastolic 77–88; PULSE 88–104; TEMP 36.8–39.5; O2SAT 92–95
[2018-01-07 08:08] LABS: HEMATOCRIT 33.7 % (37-47); HEMOGLOBIN 11.4 g/dL (12.0-16.0); MEAN CELL VOLUME 86.6 fL (80-100); MEAN CORPUSCULAR HEMOGLOBIN 29.3 pg (25-34); MEAN CORPUSCULAR HGB CONC 33.8 g/dl (32-36); MEAN PLATELET VOLUME 12.9 fL (7.4-10.4); PLATELET COUNT 48 K/uL (130-400); RED CELL DISTRIBUTION WIDTH SD 44.2 fL (36.4-46.3); WHITE BLOOD COUNT 8.08 K/uL (4.8-10.8)
[2018-01-07] MEDS: MONTELUKAST SOD 10 MG TAB PO SCH (08:34)
[2018-01-07] MEDS: DOCUSATE SODIUM 100 MG CAP PO SCH (08:34)
[2018-01-07 08:44] LABS: ALBUMIN 1.9 gm/dl (3.4-5.0); CALCIUM 7.5 mg/dl (8.5-10.1); CREATININE 1.24 mg/dl (0.60-1.20); POTASSIUM 3.5 mmol/L (3.5-5.1); TOTAL PROTEIN 5.7 gm/dl (6.4-8.2)
[2018-01-07] MEDS: SODIUM CHLORIDE 0.9% 1000ML 1,000 ML IV SCH ×2 (09:21→21:53)
[2018-01-07] MEDS: PROCHLORPERAZINE INJ 5 MG in SYRINGE 4 ML IV PRN ×2 (09:22→23:43)
[2018-01-07] MEDS ORDERED: [UNRECOGNIZED DRUG - OTHER] IV PRN (14:15)
[2018-01-07] MEDS ORDERED: NSS IV PRN (14:15)
[2018-01-07] MEDS ORDERED: POLYOLEFIN IV ONE ×2 (15:00)
[2018-01-07] MEDS ORDERED: SOD CHL IV ONE ×2 (15:00)
[2018-01-07] MEDS ORDERED: [UNRECOGNIZED DRUG - OTHER] IV ONE ×2 (15:00)
[2018-01-07] MEDS ORDERED: DOXYCYCLINE IV 100 MG in DEXTROSE 5% 100ML 100 ML IV ONE (15:30)
[2018-01-07] MEDS: ACETAMINOPHEN IV 650 MG in EMPTY BAG 0 ML IV PRN (15:43)
[2018-01-07] MEDS: PRIMARY PLUMSET 1 EA IV SCH (16:04)
--- NOTE | 2018-01-07 16:41 | Progress Note ---
Medicine Progress Note Date & Time of Visit: Jan 07, 2018 at 16:23. Subjective Pt was seen and examined Lying in bed with no distress Pt said that she cannot tolerate the Atovaquone She said that she vomits each time after taking the atovaquone Pt would like it to be changed to an IV medications Last fever episodes was last night Denies any chest pain, palpitation, dizziness and SOB Objective Last 8 Hrs Date Time Temp Pulse Resp B/P (MAP) Pulse Ox O2 Delivery O2 Flow Rate FiO2 01/07/18 15:36 39.5 104 20 131/86 (101) 92 Physical Exam: General- No acute distress Head- atraumatic Eyes- PERRL, EOMI ENT- oropharynx clear Neck- supple, no JVD Lungs- clear to auscultation Heart- regular rhythm; no murmur Abdomen- normal bowel sounds, soft Extremities- no pretibial edema Neuro- alert, oriented x 3; PERRL, EOMI Skin- warm & dry Laboratory Results: Last 24 Hours Test 01/07/18 07:56 White Blood Count 8.08 K/uL Red Blood Count 3.89 M/uL Hemoglobin 11.4 g/dL Hematocrit 33.7 % Mean Corpuscular Volume 86.6 fL Mean Corpuscular Hemoglobin 29.3 pg Mean Corpuscular Hemoglobin Concent 33.8 g/dl Platelet Count 48 K/uL Mean Platelet Volume 12.9 fL RDW Standard Deviation 44.2 fL RDW Coefficient of Variation 14.0 % Neutrophils % (Manual) 51.0 % Lymphocytes % (Manual) 13.0 % Variant Lymphocytes % (manual) 19.0 % Monocytes % (Manual) 3.0 % Eosinophils % (Manual) 8.0 % Basophils % (Manual) 2.0 % Metamyelocytes % 2.0 % Myelocytes % 2.0 % Neutrophils # (Manual) 4.12 K/uL Total Absolute Neutrophils 4.12 K/uL Lymphocytes # (Manual) 1.05 K/uL Absolute Variant Lymphocytes 1.54 K/uL Total Absolute Lymphocytes 2.59 K/uL Monocytes # (Manual) 0.24 K/uL Eosinophils # (Manual) 0.65 K/uL Basophils # (Manual) 0.16 K/uL Metamyelocytes # 0.16 K/uL Myelocytes # 0.16 K/uL Toxic Vacuolation 3+ Red Blood Cell Morphology Sodium Level 138 mmol/L Potassium Level 3.5 mmol/L Chloride Level 107 mmol/L Carbon Dioxide Level 24 mmol/L Anion Gap 7.0 mmol/L Blood Urea Nitrogen 25 mg/dl Creatinine 1.24 mg/dl Est Creatinine Clear Calc Drug Dose 53.3 ml/min Estimated GFR () 53.2 Estimated GFR (Non- 45.9 BUN/Creatinine Ratio 20.3 Random Glucose 100 mg/dl Calcium Level 7.5 mg/dl Total Bilirubin 5.4 mg/dl Aspartate Amino Transf (AST/SGOT) 168 U/L Alanine Aminotransferase (ALT/SGPT) 112 U/L Alkaline Phosphatase 70 U/L Total Protein 5.7 gm/dl Albumin 1.9 gm/dl Globulin 3.8 gm/dl Albumin/Globulin Ratio 0.5 Chemistry Specimen Hemolysis Assessment & Plan Sepsis Meet Sepsis criteria on admission Present with fever, tachycardia, UTI on admission Possible related to UTI vs Malaria Elevated prolactin on admission Lactic acid normal Was febrile early this morning Blood cx no growth Urine cx growth more than 3 organisms (contamination) Denies any dysuria, except tea colored urine. Continue monitor closely 01/07 febrile Blood cx no growth Urine cx mostly contaminated On IV rocephin, will d/c abx Acute Malaria Case discussed with Dr. 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 ID on board 01/07 Cannot tolerate the atovaquone-proguanil due to nausea/vomiting case discussed with ID Will change to IV quinidine and IV doxycycline Will monitor her on telemetry due to cardiovascular side effects such as hypotension, arrhythmia and QT prolongation UTI UA positive for nitrite/leukocytes/bacteria Febrile with elevated procalcitonin On IV Rocephin day #3 Urine cx growth more than 3 organisms (contamination) Denies any dysuria, except tea colored urine. Will discuss with ID to consider to d/c Rocephin since urine cx contaminated and blood cx no growth MARCIO Creatine on admission 1.3 Creatine 1.2 today Olmesartan/HCTZ on hold Continue IVF Monitor BMP Elevated Liver enzymes Due to Acute illness Liver enzymes elevated Continue monitor Liver enzymes Avoid hepatotoxic agents Hyponatremia Mostly due to acute illness Na on admission 132 Na 138 today Stable Hyperglycemia HbA1C 6.3 Will discuss about lifestyles modification Check Hba1c in 3 to 6 months . HTN BP stable' Olmesartan/HCTZ on hold due to elevate creatine Continue monitor BMP Thrombocytopenia Secondary to malarial illness. Platelet 48 Monitor CBC DVT px on SCDs CODE STATUS FULL CODE Current Inpatient Medications: Current Inpatient Medications Medications (Trade) Dose Ordered Sig/Osmar Route Start Time Stop Time Status Last Admin Dose Admin Acetaminophen (Tylenol Tab) 325 mg Q6H PRN PO 01/04/18 21:45 02/03/18 21:44 Prochlorperazine Edisylate 5 mg/ Syringe 5 ml @ 5 mls/min Q6H PRN IV 01/04/18 21:45 02/03/18 21:44 01/07/18 09:22 5 MLS/MIN Tramadol HCl (Ultram Tab) `1/2-1 tabs for pain ... Q6H PRN PO 01/04/18 21:45 02/03/18 21:44 Hydromorphone HCl (Dilaudid Inj) 0.5 mg Q3H PRN IV 01/04/18 21:45 01/18/18 21:44 01/05/18 04:13 0.5 MG Ceftriaxone Sodium 1 gm/ Dextrose 50 ml @ 100 mls/hr Q24H IV 01/05/18 20:00 01/10/18 19:59 01/06/18 21:43 100 MLS/HR Montelukast Sodium (Singulair Tab) 10 mg DAILY PO 01/05/18 09:00 02/04/18 08:59 01/07/18 08:34 10 MG Hydroxychloroquine Sulfate (Plaquenil Tab) 400 mg ONE ONCE PO 01/12/18 02:00 01/12/18 02:01 Docusate Sodium (coLACE CAP) 100 mg DAILY PO 01/05/18 09:00 02/04/18 08:59 01/07/18 08:34 100 MG Acetaminophen 650 mg/Empty Bag 65 ml @ 260 mls/hr Q6H PRN IV 01/06/18 01:15 02/05/18 01:14 01/07/18 15:43 260 MLS/HR Sodium Chloride 1,000 ml @ 80 mls/hr [id number] IV 01/06/18 07:45 02/05/18 07:44 01/07/18 09:21 80 MLS/HR Quinidine Gluconate 1000 mg/ Sodium Chloride 262.5 ml @ 130 mls/hr ONE ONCE IV 01/07/18 15:00 01/07/18 17:01 01/07/18 16:04 130 MLS/HR Quinidine Gluconate 800 mg/ Sodium Chloride 260 ml @ 39 mls/hr Q6H40M PRN IV 01/07/18 19:00 01/09/18 18:59 Doxycycline Hyclate 100 mg/ Dextrose 110 ml @ 50 mls/hr Q12H IV 01/08/18 04:00 01/10/18 03:59 Doxycycline Hyclate 100 mg/ Dextrose 110 ml @ 50 mls/hr 1530 ONCE IV 01/07/18 15:30 01/07/18 17:41
[2018-01-07] MEDS: NSS IV PRN (18:52)
[2018-01-07] MEDS: [UNRECOGNIZED DRUG - OTHER] IV PRN (18:52)
[2018-01-07] MEDS: CEFTRIAXONE SOD INJ 1 GM in DEXTROSE 5% ADD-VANTAGE 50ML 50 ML IV SCH (20:12)
--- NOTE | 2018-01-07 21:55 | Infectious Disease Progress Nt ---
Progress Note Date of Service Jan 07, 2018. Subjective Pt evaluation today including: conversation w/ patient, physical exam, chart review, lab review, review of studies, conversation w/ human performance consultant, review of inpatient medication list Had severe nausea and vomiting with Malarone therapy, has now been changed to IV quinidine. Still running intermittent fever. Hematocrit remained stable. Headache improved. All Other Systems: Reviewed and Negative Medications Current Inpatient Medications Medications (Trade) Dose Ordered Sig/Osmar Route Start Time Stop Time Status Last Admin Dose Admin Acetaminophen (Tylenol Tab) 325 mg Q6H PRN PO 01/04/18 21:45 02/03/18 21:44 Prochlorperazine Edisylate 5 mg/ Syringe 5 ml @ 5 mls/min Q6H PRN IV 01/04/18 21:45 02/03/18 21:44 01/07/18 09:22 5 MLS/MIN Tramadol HCl (Ultram Tab) `1/2-1 tabs for pain ... Q6H PRN PO 01/04/18 21:45 02/03/18 21:44 Hydromorphone HCl (Dilaudid Inj) 0.5 mg Q3H PRN IV 01/04/18 21:45 01/18/18 21:44 01/05/18 04:13 0.5 MG Ceftriaxone Sodium 1 gm/ Dextrose 50 ml @ 100 mls/hr Q24H IV 01/05/18 20:00 01/10/18 19:59 01/07/18 20:12 100 MLS/HR Montelukast Sodium (Singulair Tab) 10 mg DAILY PO 01/05/18 09:00 02/04/18 08:59 01/07/18 08:34 10 MG Hydroxychloroquine Sulfate (Plaquenil Tab) 400 mg ONE ONCE PO 01/12/18 02:00 01/12/18 02:01 Docusate Sodium (coLACE CAP) 100 mg DAILY PO 01/05/18 09:00 02/04/18 08:59 01/07/18 08:34 100 MG Acetaminophen 650 mg/Empty Bag 65 ml @ 260 mls/hr Q6H PRN IV 01/06/18 01:15 02/05/18 01:14 01/07/18 15:43 260 MLS/HR Sodium Chloride 1,000 ml @ 80 mls/hr [id number] IV 01/06/18 07:45 02/05/18 07:44 01/07/18 09:21 80 MLS/HR Quinidine Gluconate 800 mg/ Sodium Chloride 260 ml @ 39 mls/hr Q6H40M PRN IV 01/07/18 19:00 01/09/18 18:59 01/07/18 18:52 39 MLS/HR Doxycycline Hyclate 100 mg/ Dextrose 110 ml @ 50 mls/hr Q12H IV 01/08/18 04:00 01/10/18 03:59 Objective Vital Signs Date Time Temp Pulse Resp B/P (MAP) Pulse Ox O2 Delivery O2 Flow Rate FiO2 01/07/18 20:00 88 01/07/18 19:41 37.5 93 20 113/77 (89) 92 01/07/18 19:04 38.3 01/07/18 16:00 92 Room Air 01/07/18 15:36 39.5 104 20 131/86 (101) 92 01/07/18 08:00 Room Air 01/07/18 07:53 36.8 90 18 137/88 (104) 95 Room Air 01/07/18 00:00 Room Air 01/06/18 23:04 38.8 127 18 136/87 (103) 95 Room Air Physical Exam General Appearance: WD/WN, no apparent distress Eyes: normal inspection, EOMI, sclerae normal ENT: normal ENT inspection, pharynx normal Neck: supple, no adenopathy, thyroid normal, trachea midline Respiratory/Chest: chest non-tender, lungs clear, normal breath sounds, no respiratory distress Cardiovascular: regular rate, rhythm, no gallop, no murmur Abdomen: normal bowel sounds, non tender, soft, no organomegaly Extremities: non-tender, no calf tenderness Neurologic/Psychiatric: alert, oriented x 3 Skin: normal color, warm/dry, no rash Lymphatic: no adenopathy Laboratory Results Last 24 Hours Test 01/07/18 07:56 White Blood Count 8.08 K/uL Red Blood Count 3.89 M/uL Hemoglobin 11.4 g/dL Hematocrit 33.7 % Mean Corpuscular Volume 86.6 fL Mean Corpuscular Hemoglobin 29.3 pg Mean Corpuscular Hemoglobin Concent 33.8 g/dl Platelet Count 48 K/uL Mean Platelet Volume 12.9 fL RDW Standard Deviation 44.2 fL RDW Coefficient of Variation 14.0 % Neutrophils % (Manual) 51.0 % Lymphocytes % (Manual) 13.0 % Variant Lymphocytes % (manual) 19.0 % Monocytes % (Manual) 3.0 % Eosinophils % (Manual) 8.0 % Basophils % (Manual) 2.0 % Metamyelocytes % 2.0 % Myelocytes % 2.0 % Neutrophils # (Manual) 4.12 K/uL Total Absolute Neutrophils 4.12 K/uL Lymphocytes # (Manual) 1.05 K/uL Absolute Variant Lymphocytes 1.54 K/uL Total Absolute Lymphocytes 2.59 K/uL Monocytes # (Manual) 0.24 K/uL Eosinophils # (Manual) 0.65 K/uL Basophils # (Manual) 0.16 K/uL Metamyelocytes # 0.16 K/uL Myelocytes # 0.16 K/uL Toxic Vacuolation 3+ Red Blood Cell Morphology Sodium Level 138 mmol/L Potassium Level 3.5 mmol/L Chloride Level 107 mmol/L Carbon Dioxide Level 24 mmol/L Anion Gap 7.0 mmol/L Blood Urea Nitrogen 25 mg/dl Creatinine 1.24 mg/dl Est Creatinine Clear Calc Drug Dose 53.3 ml/min Estimated GFR () 53.2 Estimated GFR (Non- 45.9 BUN/Creatinine Ratio 20.3 Random Glucose 100 mg/dl Calcium Level 7.5 mg/dl Total Bilirubin 5.4 mg/dl Aspartate Amino Transf (AST/SGOT) 168 U/L Alanine Aminotransferase (ALT/SGPT) 112 U/L Alkaline Phosphatase 70 U/L Total Protein 5.7 gm/dl Albumin 1.9 gm/dl Globulin 3.8 gm/dl Albumin/Globulin Ratio 0.5 Chemistry Specimen Hemolysis Assessment and Plan Patient with acute falciparum malaria, with low level of parasitemia. Patient to continue on quinine and doxycycline, will follow fever curve and CBC. Would send another malaria smear to see if clearance of parasitemia. Will follow..
[2018-01-08] MEDS: NSS IV PRN ×3 (01:28→15:20)
[2018-01-08] MEDS: [UNRECOGNIZED DRUG - OTHER] IV PRN ×3 (01:28→15:20)
[2018-01-08] MEDS ORDERED: DOXYCYCLINE IV 100 MG in DEXTROSE 5% 100ML 100 ML IV SCH (04:00)
[2018-01-08 05:15] VITALS: BP 115/78; PULSE 93; TEMP 38.5; O2SAT 93
[2018-01-08] MEDS: ACETAMINOPHEN IV 650 MG in EMPTY BAG 0 ML IV PRN (05:36)
[2018-01-08 06:37] VITALS: TEMP 37.6
[2018-01-08 06:44] LABS: HEMATOCRIT 30.9 % (37-47); HEMOGLOBIN 10.5 g/dL (12.0-16.0); MEAN CELL VOLUME 85.6 fL (80-100); MEAN CORPUSCULAR HEMOGLOBIN 29.1 pg (25-34); MEAN PLATELET VOLUME 12.9 fL (7.4-10.4); PLATELET COUNT 68 K/uL (130-400); RED CELL DISTRIBUTION WIDTH CV 14.3 % (11.5-14.5); RED CELL DISTRIBUTION WIDTH SD 45.1 fL (36.4-46.3); WHITE BLOOD COUNT 8.25 K/uL (4.8-10.8)
[2018-01-08 07:09] VITALS: BP 118/79; PULSE 89; TEMP 37.5; O2SAT 91
[2018-01-08 07:17] LABS: ALBUMIN 1.6 gm/dl (3.4-5.0); CALCIUM 7.1 mg/dl (8.5-10.1); CREATININE 1.13 mg/dl (0.60-1.20); POTASSIUM 3.6 mmol/L (3.5-5.1); TOTAL PROTEIN 5.6 gm/dl (6.4-8.2)
[2018-01-08] MEDS: PRIMARY PLUMSET 1 EA IV SCH (08:34)
[2018-01-08] MEDS: MONTELUKAST SOD 10 MG TAB PO SCH (09:00)
[2018-01-08] MEDS: DOCUSATE SODIUM 100 MG CAP PO SCH (09:00)
[2018-01-08] MEDS: SODIUM CHLORIDE 0.9% 1000ML 1,000 ML IV SCH ×2 (10:47→22:02)
[2018-01-08 11:20] VITALS: BP 125/83; PULSE 78; TEMP 36.5; O2SAT 93
--- NOTE | 2018-01-08 13:00 | Progress Note ---
Internal Med Progress Note Date of Service: Jan 08, 2018. Provider Documentation: SUBJECTIVE: The patient was seen and examined in telemetry unit She was admitted with sepsis secondary to acute malarial infection She has been on IV quinidine and doxycycline Feels better but complains to have generalized weakness No fever chills or rigors and no nausea and/or vomiting OBJECTIVE: Vital Signs-as noted below Exam: General-generally weak but no other apparent distress Eyes-normal ENT-normal Neck-supple Lungs-clear to auscultate bilaterally Heart-regular, no murmur appreciated Abdomen-benign, no organomegaly, bowel sounds present Extremities-trace edema bilaterally Neuro-alert, awake and oriented 3 Generally weak Lab data as noted below. ASSESSMENT & PLAN: Sepsis;;Possible related to UTI vs Malaria Meet Sepsis criteria on admission Present with fever, tachycardia, UTI on admission Elevated prolactin on admission ,Lactic acid normal Blood cx no growth Urine cx growth more than 3 organisms (contamination) IV Rocephin was added for probable UTI and later on discontinued Acute Malaria Case discussed with Dr. 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 ID on board-appreciate input Could not tolerate the atovaquone-proguanil due to nausea/vomiting Cardiovascular has been changed to IV quinidine and IV doxycycline Clinically better but complains of generalized weakness UTI UA positive for nitrite/leukocytes/bacteria Febrile with elevated procalcitonin On IV Rocephin day #3 Urine cx growth more than 3 organisms (contamination) Antibiotic discontinued MARCIO-secondary to dehydration and malarial infection Creatine on admission 1.3 Creatine 1.2 today Olmesartan/HCTZ on hold Creatinine is at baseline Elevated Liver enzymes Due to Acute illness Continue monitor Liver enzymes Avoid hepatotoxic agents LFTs are fluctuating at this time Hyponatremia Mostly Due To acute illness corected Hyperglycemia HbA1C 6.3 Will discuss about lifestyles modification Check Hba1c in 3 to 6 months . HTN BP stable' Olmesartan/HCTZ on hold due to elevate creatine Continue monitor BMP Thrombocytopenia Secondary to malarial illness. Platelet 48 Monitor CBC DVT px on SCDs CODE STATUS FULL CODE DISPOSITION Request PT OT evaluation Possible discharge in 2-3 days Vital Signs: Date Time Temp Pulse Resp B/P (MAP) Pulse Ox O2 Delivery O2 Flow Rate FiO2 01/08/18 11:20 36.5 78 16 125/83 (97) 93 Room Air 01/08/18 08:00 Room Air 01/08/18 07:09 37.5 89 18 118/79 (92) 91 Room Air 01/08/18 06:37 37.6 01/08/18 05:15 38.5 93 20 115/78 (90) 93 Room Air 01/08/18 00:00 Room Air 01/07/18 23:34 37.2 94 20 138/84 (102) 94 Room Air 01/07/18 20:00 88 01/07/18 19:41 37.5 93 20 113/77 (89) 92 01/07/18 19:04 38.3 01/07/18 16:00 92 Room Air 01/07/18 15:36 39.5 104 20 131/86 (101) 92 Lab Results: Results Past 24 Hours Test 01/08/18 05:59 Range/Units White Blood Count 8.25 4.8-10.8 K/uL Red Blood Count 3.61 4.2-5.4 M/uL Hemoglobin 10.5 12.0-16.0 g/dL Hematocrit 30.9 37-47 % Mean Corpuscular Volume 85.6 80-100 fL Mean Corpuscular Hemoglobin 29.1 25-34 pg Mean Corpuscular Hemoglobin Concent 34.0 32-36 g/dl Platelet Count 68 130-400 K/uL Mean Platelet Volume 12.9 7.4-10.4 fL RDW Standard Deviation 45.1 36.4-46.3 fL RDW Coefficient of Variation 14.3 11.5-14.5 % Neutrophils % (Manual) 51.7 % Lymphocytes % (Manual) 19.3 % Variant Lymphocytes % (manual) 13.2 % Monocytes % (Manual) 3.5 % Eosinophils % (Manual) 3.5 % Basophils % (Manual) 2.6 % Metamyelocytes % 1.8 % Myelocytes % 2.6 % Promyelocytes % 1.8 % Neutrophils # (Manual) 4.27 1.4-6.5 K/uL Total Absolute Neutrophils 4.27 1.4-6.5 K/uL Lymphocytes # (Manual) 1.59 1.2-3.4 K/uL Absolute Variant Lymphocytes 1.09 K/uL Total Absolute Lymphocytes 2.68 1.2-3.4 K/uL Monocytes # (Manual) 0.29 0.11-0.59 K/uL Eosinophils # (Manual) 0.29 0-0.5 K/uL Basophils # (Manual) 0.21 0-0.2 K/uL Metamyelocytes # 0.15 0-0 K/uL Myelocytes # 0.21 0-0 K/uL Promyelocytes # 0.15 0-0 K/uL Blood Smear Review Toxic Vacuolation 3+ Giant Platelets 2+ Sodium Level 137 136-145 mmol/L Potassium Level 3.6 3.5-5.1 mmol/L Chloride Level 108 98-107 mmol/L Carbon Dioxide Level 21 21-32 mmol/L Anion Gap 9.0 3-11 mmol/L Blood Urea Nitrogen 22 7-18 mg/dl Creatinine 1.13 0.60-1.20 mg/dl Est Creatinine Clear Calc Drug Dose 60.6 ml/min Estimated GFR () 59.5 Estimated GFR (Non- 51.3 BUN/Creatinine Ratio 19.1 10-20 Random Glucose 100 70-99 mg/dl Calcium Level 7.1 8.5-10.1 mg/dl Total Bilirubin 5.0 0.2-1 mg/dl Aspartate Amino Transf (AST/SGOT) 343 15-37 U/L Alanine Aminotransferase (ALT/SGPT) 168 12-78 U/L Alkaline Phosphatase 71 45-117 U/L Total Protein 5.6 6.4-8.2 gm/dl Albumin 1.6 3.4-5.0 gm/dl Globulin 4.0 2.5-4.0 gm/dl Albumin/Globulin Ratio 0.4 0.9-2 Microbiology Results 01/08/18 Parasitology Test - Preliminary, Resulted
[2018-01-08] MEDS: PROCHLORPERAZINE INJ 5 MG in SYRINGE 4 ML IV PRN (14:28)
[2018-01-08 15:37] VITALS: BP 143/88; PULSE 83; TEMP 36.8; O2SAT 91
[2018-01-08] MEDS: DOXYCYCLINE HYCLATE 100 MG CAP PO SCH (17:32)
--- NOTE | 2018-01-08 20:09 | Infectious Disease Progress Nt ---
Progress Note Date of Service Jan 08, 2018. Subjective Pt evaluation today including: conversation w/ patient, physical exam, chart review, lab review, review of studies, conversation w/ inbound sales consultant, review of inpatient medication list Patient feeling better, temperature currently normal, continues with weakness and fatigue, otherwise offers no new complaints. All Other Systems: Reviewed and Negative Medications Current Inpatient Medications Medications (Trade) Dose Ordered Sig/Osmar Route Start Time Stop Time Status Last Admin Dose Admin Acetaminophen (Tylenol Tab) 325 mg Q6H PRN PO 01/04/18 21:45 02/03/18 21:44 Prochlorperazine Edisylate 5 mg/ Syringe 5 ml @ 5 mls/min Q6H PRN IV 01/04/18 21:45 02/03/18 21:44 01/08/18 14:28 5 MLS/MIN Tramadol HCl (Ultram Tab) `1/2-1 tabs for pain ... Q6H PRN PO 01/04/18 21:45 02/03/18 21:44 Hydromorphone HCl (Dilaudid Inj) 0.5 mg Q3H PRN IV 01/04/18 21:45 01/18/18 21:44 01/05/18 04:13 0.5 MG Ceftriaxone Sodium 1 gm/ Dextrose 50 ml @ 100 mls/hr Q24H IV 01/05/18 20:00 01/10/18 19:59 01/07/18 20:12 100 MLS/HR Montelukast Sodium (Singulair Tab) 10 mg DAILY PO 01/05/18 09:00 02/04/18 08:59 01/08/18 09:00 10 MG Docusate Sodium (coLACE CAP) 100 mg DAILY PO 01/05/18 09:00 02/04/18 08:59 01/08/18 09:00 100 MG Acetaminophen 650 mg/Empty Bag 65 ml @ 260 mls/hr Q6H PRN IV 01/06/18 01:15 02/05/18 01:14 01/08/18 05:36 260 MLS/HR Sodium Chloride 1,000 ml @ 80 mls/hr [id number] IV 01/06/18 07:45 02/05/18 07:44 01/08/18 10:47 80 MLS/HR Quinidine Gluconate 800 mg/ Sodium Chloride 260 ml @ 39 mls/hr Q6H40M PRN IV 01/07/18 19:00 01/08/18 22:00 01/08/18 15:20 39 MLS/HR Miscellaneous (Stop Order) 1 ea TODAY@2200 ONCE N/A 01/08/18 22:00 01/08/18 22:01 Doxycycline Hyclate (Vibramycin Cap) 100 mg BID PO 01/08/18 18:00 01/14/18 10:01 01/08/18 17:32 100 MG Quinine Sulfate (QUINine SULFATE CAP) 648 mg Q8 PO 01/09/18 06:00 01/10/18 13:59 Objective Vital Signs Date Time Temp Pulse Resp B/P (MAP) Pulse Ox O2 Delivery O2 Flow Rate FiO2 01/08/18 15:37 36.8 83 18 143/88 (106) 91 Room Air 01/08/18 11:20 36.5 78 16 125/83 (97) 93 Room Air 01/08/18 08:00 Room Air 01/08/18 07:09 37.5 89 18 118/79 (92) 91 Room Air 01/08/18 06:37 37.6 01/08/18 05:15 38.5 93 20 115/78 (90) 93 Room Air 01/08/18 00:00 Room Air 01/07/18 23:34 37.2 94 20 138/84 (102) 94 Room Air Physical Exam General Appearance: WD/WN, no apparent distress Eyes: normal inspection, EOMI, sclerae normal ENT: normal ENT inspection, pharynx normal Neck: supple, no adenopathy, thyroid normal, trachea midline Respiratory/Chest: chest non-tender, lungs clear, normal breath sounds, no respiratory distress Cardiovascular: regular rate, rhythm, no gallop, no JVD, no murmur Abdomen: normal bowel sounds, non tender, soft, no organomegaly Extremities: non-tender, no calf tenderness, normal capillary refill Neurologic/Psychiatric: alert, oriented x 3 Skin: normal color, warm/dry, no rash Lymphatic: no adenopathy Laboratory Results RUN DATE: 01/08/18 [facility] PAGE 1 RUN TIME: 1213 Specimen Inquiry PATIENT: SHIRIN MENDOZA LOC: [facility] # : [id number] AGE/SX: 62/F ROOM: [facility] REG : 01/04/[address]: Anastasia Graham M.D. : 1955 BED: 2 DIS : STATUS: ADM IN TLOC: SPEC #: [id number] KAREN: 01/08/18-5 STATUS: RES REQ #: [id number] RECD: 01/08/18-[address]: Gustavo Damon MD SOURCE: BLOOD ENTR: 01/08/18-[address]: Mercy Hernandez M.D. SPDC: Anastasia Graham M.D. Ejianreh, Fidelis O., M.D. Oconer, Joseph N., M.D. ORDERED: PARASITE SMEAR COMMENTS: Drawn above IV site per protocol (6cc Discard). Procedure Result Verified Site PERIPHERAL SMEAR FOR PARASITES Preliminary 01/08/18-1213 NO BLOOD PARASITES SEEN. Examination of multiple blood films (from different blood draws) are required before the patient can be considered "negative" for blood parasites. If parasitemia is suspected, follow-up samples should be performed for three successive days every 6-8 hours. Last 24 Hours Test 01/08/18 05:59 White Blood Count 8.25 K/uL Red Blood Count 3.61 M/uL Hemoglobin 10.5 g/dL Hematocrit 30.9 % Mean Corpuscular Volume 85.6 fL Mean Corpuscular Hemoglobin 29.1 pg Mean Corpuscular Hemoglobin Concent 34.0 g/dl Platelet Count 68 K/uL Mean Platelet Volume 12.9 fL RDW Standard Deviation 45.1 fL RDW Coefficient of Variation 14.3 % Neutrophils % (Manual) 51.7 % Lymphocytes % (Manual) 19.3 % Variant Lymphocytes % (manual) 13.2 % Monocytes % (Manual) 3.5 % Eosinophils % (Manual) 3.5 % Basophils % (Manual) 2.6 % Metamyelocytes % 1.8 % Myelocytes % 2.6 % Promyelocytes % 1.8 % Neutrophils # (Manual) 4.27 K/uL Total Absolute Neutrophils 4.27 K/uL Lymphocytes # (Manual) 1.59 K/uL Absolute Variant Lymphocytes 1.09 K/uL Total Absolute Lymphocytes 2.68 K/uL Monocytes # (Manual) 0.29 K/uL Eosinophils # (Manual) 0.29 K/uL Basophils # (Manual) 0.21 K/uL Metamyelocytes # 0.15 K/uL Myelocytes # 0.21 K/uL Promyelocytes # 0.15 K/uL Blood Smear Review Toxic Vacuolation 3+ Giant Platelets 2+ Sodium Level 137 mmol/L Potassium Level 3.6 mmol/L Chloride Level 108 mmol/L Carbon Dioxide Level 21 mmol/L Anion Gap 9.0 mmol/L Blood Urea Nitrogen 22 mg/dl Creatinine 1.13 mg/dl Est Creatinine Clear Calc Drug Dose 60.6 ml/min Estimated GFR () 59.5 Estimated GFR (Non- 51.3 BUN/Creatinine Ratio 19.1 Random Glucose 100 mg/dl Calcium Level 7.1 mg/dl Total Bilirubin 5.0 mg/dl Aspartate Amino Transf (AST/SGOT) 343 U/L Alanine Aminotransferase (ALT/SGPT) 168 U/L Alkaline Phosphatase 71 U/L Total Protein 5.6 gm/dl Albumin 1.6 gm/dl Globulin 4.0 gm/dl Albumin/Globulin Ratio 0.4 Assessment and Plan Patient with acute falciparum malaria, with low level of parasitemia. She appears to be responding to therapy, platelet count improving. To transition to oral quinine therapy along with doxycycline to complete planned course of therapy. Will continue to follow.
[2018-01-08] MEDS: CEFTRIAXONE SOD INJ 1 GM in DEXTROSE 5% ADD-VANTAGE 50ML 50 ML IV SCH (21:58)
[2018-01-08] MEDS ORDERED: [UNRECOGNIZED DRUG - REMARK] ONE (22:00)
[2018-01-09] VITALS (7 sets, daily range): BP systolic 121–163; BP diastolic 78–104; PULSE 80–90; TEMP 36.8–37.4; O2SAT 92–94
[2018-01-09] MEDS: QUINine SULFATE CAP 324 MG CAP PO SCH ×3 (05:54→20:59)
[2018-01-09 07:16] LABS: HEMATOCRIT 27.7 % (37-47); HEMOGLOBIN 9.8 g/dL (12.0-16.0); MEAN CELL VOLUME 86.3 fL (80-100); MEAN CORPUSCULAR HEMOGLOBIN 30.5 pg (25-34); MEAN CORPUSCULAR HGB CONC 35.4 g/dl (32-36); MEAN PLATELET VOLUME 12.8 fL (7.4-10.4); PLATELET COUNT 80 K/uL (130-400); RED CELL DISTRIBUTION WIDTH CV 14.8 % (11.5-14.5); RED CELL DISTRIBUTION WIDTH SD 46.4 fL (36.4-46.3); WHITE BLOOD COUNT 8.95 K/uL (4.8-10.8)
[2018-01-09 07:32] LABS: POTASSIUM 3.3 mmol/L (3.5-5.1)
[2018-01-09 07:33] LABS: AST/SGOT 252 U/L (15-37)
[2018-01-09 07:34] LABS: ALBUMIN 1.5 gm/dl (3.4-5.0); ALKALINE PHOSPHATASE 73 U/L (45-117); ALT/SGPT 161 U/L (12-78); BLOOD UREA NITROGEN 23 mg/dl (7-18); CALCIUM 7.2 mg/dl (8.5-10.1); CARBON DIOXIDE 19 mmol/L (21-32); CREATININE 1.22 mg/dl (0.60-1.20); GLUCOSE 102 mg/dl (70-99); SODIUM 137 mmol/L (136-145); TOTAL PROTEIN 5.6 gm/dl (6.4-8.2)
[2018-01-09] MEDS: MONTELUKAST SOD 10 MG TAB PO SCH (07:53)
[2018-01-09] MEDS: DOCUSATE SODIUM 100 MG CAP PO SCH ×2 (07:53→09:00)
[2018-01-09] MEDS: DOXYCYCLINE HYCLATE 100 MG CAP PO SCH ×2 (07:53→20:59)
[2018-01-09] MEDS: PROCHLORPERAZINE INJ 5 MG in SYRINGE 4 ML IV PRN ×2 (09:22→22:20)
[2018-01-09] MEDS ORDERED: NURSING VERBAL MED ORDER ONE ×2 (10:15→13:30)
[2018-01-09] MEDS ORDERED: POTASSIUM CHLORIDE 10 MEQ TABCR PO STA (11:33)
[2018-01-09] MEDS ORDERED: FUROSEMIDE INJ 60 MG in SYRINGE 0 ML IV ONE (11:45)
[2018-01-09] MEDS: POTASSIUM CHLR 10 MEQ / WTR 100 ML IV SCH ×2 (13:45→15:04)
--- NOTE | 2018-01-09 14:37 | Progress Note ---
Internal Med Progress Note Date of Service: Jan 09, 2018. Provider Documentation: SUBJECTIVE: The patient was seen and examined in telemetry unit She was admitted with sepsis secondary to acute malarial infection She has been on IV quinidine and doxycycline Feels better but complains to have generalized weakness No fever chills or rigors and no nausea and/or vomiting 01/09: Remains generally weak Nauseous morning but no vomiting Looks bloated and gained about 6 kg OBJECTIVE: Vital Signs-as noted below Exam: General-generally weak but no other apparent distress No shortness of breath at rest Eyes-normal ENT-normal Neck-supple Lungs- With decreased breath sounds bilaterally with minimal bibasilar crackles Heart-regular, no murmur appreciated Abdomen-benign, no organomegaly, bowel sounds present Extremities-1+ edema bilaterally Neuro-alert, awake and oriented 3 Generally weak Lab data as noted below. ASSESSMENT & PLAN: Sepsis;;Possible related to UTI vs Malaria Meet Sepsis criteria on admission Present with fever, tachycardia, UTI on admission Elevated prolactin on admission ,Lactic acid normal Blood cx no growth Urine cx growth more than 3 organisms (contamination) IV Rocephin was added for probable UTI and later on discontinued Clinically better but remains generally weak May have fluid overload with 6 kg weight gain since admission-discontinue IV fluid We will try Lasix 60 mg IV 1 Supplemental potassium Acute Malaria Case discussed with Dr. 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 ID on board-appreciate input Could not tolerate the atovaquone-proguanil due to nausea/vomiting Cardiovascular has been changed to IV quinidine and IV doxycycline Clinically better but complains of generalized weakness Antibiotics changed to oral We will finish the course as per ID recommendation UTI UA positive for nitrite/leukocytes/bacteria Febrile with elevated procalcitonin On IV Rocephin day #3 Urine cx growth more than 3 organisms (contamination) Antibiotic discontinued MARCIO-secondary to dehydration and malarial infection Creatine on admission 1.3 Creatine 1.2 today Olmesartan/HCTZ on hold Creatinine is at baseline Elevated Liver enzymes Due to Acute illness Continue monitor Liver enzymes Avoid hepatotoxic agents LFTs are fluctuating at this time Not getting any worse Hyponatremia Mostly Due To acute illness corrected Hyperglycemia HbA1C 6.3 Will discuss about lifestyles modification Check Hba1c in 3 to 6 months . HTN BP stable' Olmesartan/HCTZ on hold due to elevate creatine Continue monitor BMP Thrombocytopenia Secondary to malarial illness. Platelet 48 Monitor CBC DVT px on SCDs CODE STATUS FULL CODE DISPOSITION Request PT OT evaluation Not yet ready to be discharged Vital Signs: Date Time Temp Pulse Resp B/P (MAP) Pulse Ox O2 Delivery O2 Flow Rate FiO2 01/09/18 12:30 36.8 83 16 149/92 (111) 92 Room Air 01/09/18 08:00 Room Air 01/09/18 07:37 37.0 80 16 128/85 (99) 93 Room Air 01/09/18 04:11 37.4 84 20 136/88 (104) 94 Room Air 01/09/18 00:10 37.1 85 20 121/78 (92) 94 Room Air 01/09/18 00:00 Room Air 01/08/18 20:00 Room Air 01/08/18 15:37 36.8 83 18 143/88 (106) 91 Room Air Lab Results: Results Past 24 Hours Test 01/09/18 06:27 Range/Units White Blood Count 8.95 4.8-10.8 K/uL Red Blood Count 3.21 4.2-5.4 M/uL Hemoglobin 9.8 12.0-16.0 g/dL Hematocrit 27.7 37-47 % Mean Corpuscular Volume 86.3 80-100 fL Mean Corpuscular Hemoglobin 30.5 25-34 pg Mean Corpuscular Hemoglobin Concent 35.4 32-36 g/dl Platelet Count 80 130-400 K/uL Mean Platelet Volume 12.8 7.4-10.4 fL RDW Standard Deviation 46.4 36.4-46.3 fL RDW Coefficient of Variation 14.8 11.5-14.5 % Neutrophils % (Manual) 62.2 % Lymphocytes % (Manual) 19.7 % Variant Lymphocytes % (manual) 11.1 % Monocytes % (Manual) 0.9 % Eosinophils % (Manual) 1.7 % Basophils % (Manual) 2.6 % Myelocytes % 0.9 % Promyelocytes % 0.9 % Neutrophils # (Manual) 5.57 1.4-6.5 K/uL Total Absolute Neutrophils 5.57 1.4-6.5 K/uL Lymphocytes # (Manual) 1.76 1.2-3.4 K/uL Absolute Variant Lymphocytes 0.99 K/uL Total Absolute Lymphocytes 2.76 1.2-3.4 K/uL Monocytes # (Manual) 0.08 0.11-0.59 K/uL Eosinophils # (Manual) 0.15 0-0.5 K/uL Basophils # (Manual) 0.23 0-0.2 K/uL Myelocytes # 0.08 0-0 K/uL Promyelocytes # 0.08 0-0 K/uL Toxic Granulation 1+ Toxic Vacuolation 2+ Echinocytes 1+ Sodium Level 137 136-145 mmol/L Potassium Level 3.3 3.5-5.1 mmol/L Chloride Level 110 98-107 mmol/L Carbon Dioxide Level 19 21-32 mmol/L Anion Gap 9.0 3-11 mmol/L Blood Urea Nitrogen 23 7-18 mg/dl Creatinine 1.22 0.60-1.20 mg/dl Est Creatinine Clear Calc Drug Dose 55.9 ml/min Estimated GFR () 54.2 Estimated GFR (Non- 46.8 BUN/Creatinine Ratio 18.4 10-20 Random Glucose 102 70-99 mg/dl Calcium Level 7.2 8.5-10.1 mg/dl Phosphorus Level 2.0 2.5-4.9 mg/dl Magnesium Level 1.8-2.4 mg/dl Total Bilirubin 3.1 0.2-1 mg/dl Direct Bilirubin 2.5 0-0.2 mg/dl Aspartate Amino Transf (AST/SGOT) 252 15-37 U/L Alanine Aminotransferase (ALT/SGPT) 161 12-78 U/L Alkaline Phosphatase 73 45-117 U/L Total Protein 5.6 6.4-8.2 gm/dl Albumin 1.5 3.4-5.0 gm/dl
--- NOTE | 2018-01-09 15:37 | Infectious Disease Progress Nt ---
Progress Note Date of Service Jan 09, 2018. Subjective Pt evaluation today including: conversation w/ patient, physical exam, chart review, lab review, review of studies, conversation w/ library sales consultant, review of inpatient medication list Patient now on quinine and doxycycline, tolerating reasonably well with some nausea. Feeling overall better. Temperature down last 24 hours. No other new complaints. Platelets are improving. Liver enzymes slightly better. Follow- up malaria smear negative All Other Systems: Reviewed and Negative Medications Current Inpatient Medications Medications (Trade) Dose Ordered Sig/Osmar Route Start Time Stop Time Status Last Admin Dose Admin Acetaminophen (Tylenol Tab) 325 mg Q6H PRN PO 01/04/18 21:45 02/03/18 21:44 01/09/18 04:10 325 MG Prochlorperazine Edisylate 5 mg/ Syringe 5 ml @ 5 mls/min Q6H PRN IV 01/04/18 21:45 02/03/18 21:44 01/09/18 09:22 5 MLS/MIN Tramadol HCl (Ultram Tab) `1/2-1 tabs for pain ... Q6H PRN PO 01/04/18 21:45 02/03/18 21:44 01/09/18 05:59 25 MG Hydromorphone HCl (Dilaudid Inj) 0.5 mg Q3H PRN IV 01/04/18 21:45 01/18/18 21:44 01/05/18 04:13 0.5 MG Ceftriaxone Sodium 1 gm/ Dextrose 50 ml @ 100 mls/hr Q24H IV 01/05/18 20:00 01/10/18 19:59 01/08/18 21:58 100 MLS/HR Montelukast Sodium (Singulair Tab) 10 mg DAILY PO 01/05/18 09:00 02/04/18 08:59 01/09/18 07:53 10 MG Docusate Sodium (coLACE CAP) 100 mg DAILY PO 01/05/18 09:00 02/04/18 08:59 01/08/18 09:00 100 MG Acetaminophen 650 mg/Empty Bag 65 ml @ 260 mls/hr Q6H PRN IV 01/06/18 01:15 02/05/18 01:14 01/08/18 05:36 260 MLS/HR Doxycycline Hyclate (Vibramycin Cap) 100 mg BID PO 01/08/18 18:00 01/14/18 10:01 01/09/18 07:53 100 MG Quinine Sulfate (QUINine SULFATE CAP) 648 mg Q8 PO 01/09/18 06:00 01/10/18 13:59 01/09/18 13:04 648 MG Potassium Chloride 100 ml @ 100 mls/hr Q1H IV 01/09/18 14:00 01/09/18 15:59 01/09/18 15:04 100 MLS/HR Objective Vital Signs Date Time Temp Pulse Resp B/P (MAP) Pulse Ox O2 Delivery O2 Flow Rate FiO2 01/09/18 15:33 37.0 83 20 163/104 (123) 92 Room Air 01/09/18 12:30 36.8 83 16 149/92 (111) 92 Room Air 01/09/18 08:00 Room Air 01/09/18 07:37 37.0 80 16 128/85 (99) 93 Room Air 01/09/18 04:11 37.4 84 20 136/88 (104) 94 Room Air 01/09/18 00:10 37.1 85 20 121/78 (92) 94 Room Air 01/09/18 00:00 Room Air 01/08/18 20:00 Room Air 01/08/18 15:37 36.8 83 18 143/88 (106) 91 Room Air Physical Exam General Appearance: WD/WN, no apparent distress Eyes: normal inspection, EOMI, sclerae normal ENT: normal ENT inspection, pharynx normal Neck: supple, no adenopathy, thyroid normal, trachea midline Respiratory/Chest: chest non-tender, lungs clear, normal breath sounds, no respiratory distress Cardiovascular: regular rate, rhythm, no gallop, no murmur Abdomen: normal bowel sounds, non tender, soft, no organomegaly Extremities: non-tender, no calf tenderness Neurologic/Psychiatric: alert, normal mood/affect, oriented x 3 Skin: normal color, warm/dry, no rash Lymphatic: no adenopathy Laboratory Results Last 24 Hours Test 01/09/18 06:27 White Blood Count 8.95 K/uL Red Blood Count 3.21 M/uL Hemoglobin 9.8 g/dL Hematocrit 27.7 % Mean Corpuscular Volume 86.3 fL Mean Corpuscular Hemoglobin 30.5 pg Mean Corpuscular Hemoglobin Concent 35.4 g/dl Platelet Count 80 K/uL Mean Platelet Volume 12.8 fL RDW Standard Deviation 46.4 fL RDW Coefficient of Variation 14.8 % Neutrophils % (Manual) 62.2 % Lymphocytes % (Manual) 19.7 % Variant Lymphocytes % (manual) 11.1 % Monocytes % (Manual) 0.9 % Eosinophils % (Manual) 1.7 % Basophils % (Manual) 2.6 % Myelocytes % 0.9 % Promyelocytes % 0.9 % Neutrophils # (Manual) 5.57 K/uL Total Absolute Neutrophils 5.57 K/uL Lymphocytes # (Manual) 1.76 K/uL Absolute Variant Lymphocytes 0.99 K/uL Total Absolute Lymphocytes 2.76 K/uL Monocytes # (Manual) 0.08 K/uL Eosinophils # (Manual) 0.15 K/uL Basophils # (Manual) 0.23 K/uL Myelocytes # 0.08 K/uL Promyelocytes # 0.08 K/uL Toxic Granulation 1+ Toxic Vacuolation 2+ Echinocytes 1+ Sodium Level 137 mmol/L Potassium Level 3.3 mmol/L Chloride Level 110 mmol/L Carbon Dioxide Level 19 mmol/L Anion Gap 9.0 mmol/L Blood Urea Nitrogen 23 mg/dl Creatinine 1.22 mg/dl Est Creatinine Clear Calc Drug Dose 55.9 ml/min Estimated GFR () 54.2 Estimated GFR (Non- 46.8 BUN/Creatinine Ratio 18.4 Random Glucose 102 mg/dl Calcium Level 7.2 mg/dl Phosphorus Level 2.0 mg/dl Magnesium Level mg/dl Total Bilirubin 3.1 mg/dl Direct Bilirubin 2.5 mg/dl Aspartate Amino Transf (AST/SGOT) 252 U/L Alanine Aminotransferase (ALT/SGPT) 161 U/L Alkaline Phosphatase 73 U/L Total Protein 5.6 gm/dl Albumin 1.5 gm/dl Assessment and Plan Patient with acute falciparum malaria, with low level of parasitemia. She appears to be responding to therapy, platelet count improving and no malarial parasites seen on last blood smear. Will complete 3 days of clonidine/quinine therapy, and 7 days of oral doxycycline.
[2018-01-09] MEDS: CEFTRIAXONE SOD INJ 1 GM in DEXTROSE 5% ADD-VANTAGE 50ML 50 ML IV SCH (20:59)
[2018-01-10 00:13] VITALS: BP 149/97; PULSE 80; TEMP 37.1; O2SAT 93
[2018-01-10 04:27] VITALS: BP 155/93; PULSE 87; TEMP 37; O2SAT 93
[2018-01-10] MEDS: QUINine SULFATE CAP 324 MG CAP PO SCH ×2 (05:40→15:49)
[2018-01-10] MEDS: PROCHLORPERAZINE INJ 5 MG in SYRINGE 4 ML IV PRN (05:53)
[2018-01-10 07:04] VITALS: BP 144/90; PULSE 78; TEMP 37; O2SAT 93
[2018-01-10 07:17] LABS: HEMATOCRIT 28.2 % (37-47); HEMOGLOBIN 9.6 g/dL (12.0-16.0); MEAN CORPUSCULAR HEMOGLOBIN 29.3 pg (25-34); PLATELET COUNT 117 K/uL (130-400); RED CELL DISTRIBUTION WIDTH CV 14.8 % (11.5-14.5); RED CELL DISTRIBUTION WIDTH SD 46.9 fL (36.4-46.3); WHITE BLOOD COUNT 10.58 K/uL (4.8-10.8)
[2018-01-10] MEDS: DOXYCYCLINE HYCLATE 100 MG CAP PO SCH (07:26)
[2018-01-10] MEDS: DOCUSATE SODIUM 100 MG CAP PO SCH (07:26)
[2018-01-10] MEDS: MONTELUKAST SOD 10 MG TAB PO SCH (07:26)
[2018-01-10 11:07] VITALS: BP 159/94; PULSE 75; TEMP 36.8; O2SAT 94
[2018-01-10] MEDS ORDERED: POTASSIUM PHOS 3 MMOL/1 ML INFUSION IV STA (11:19)
[2018-01-10] MEDS ORDERED: POTASSIUM PHOSPHATE INJ 30 MMOL in SODIUM CHLORIDE 0.9% 500ML 500 ML IV ONE (11:30)
--- NOTE | 2018-01-10 13:18 | Progress Note ---
Internal Med Progress Note Date of Service: Jan 10, 2018. Provider Documentation: SUBJECTIVE: The patient was seen and examined in telemetry unit She was admitted with sepsis secondary to acute malarial infection She has been on IV quinidine and doxycycline Feels better but complains to have generalized weakness No fever chills or rigors and no nausea and/or vomiting 01/09: Remains generally weak Nauseous morning but no vomiting Looks bloated and gained about 6 kg 01/10 Diuresed a lot and feels better Has been ambulating Weakness is better OBJECTIVE: Vital Signs-as noted below Exam: General-generally weak but no other apparent distress No shortness of breath at rest Eyes-normal ENT-normal Neck-supple Lungs- With decreased breath sounds bilaterally with minimal bibasilar crackles- improved Heart-regular, no murmur appreciated Abdomen-benign, no organomegaly, bowel sounds present Extremities-1+ edema bilaterally Neuro-alert, awake and oriented 3 Generally weak Lab data as noted below. ASSESSMENT & PLAN: Sepsis;;Possible related to UTI vs Malaria Meet Sepsis criteria on admission Present with fever, tachycardia, UTI on admission Elevated prolactin on admission ,Lactic acid normal Blood cx no growth Urine cx growth more than 3 organisms (contamination) IV Rocephin was added for probable UTI and later on discontinued Clinically better but remains generally weak May have fluid overload with 6 kg weight gain since admission-discontinue IV fluid We will try Lasix 60 mg IV 1 -01/09 Supplemental potassium Clinically much better Try 20 of Lasix IV today Supplement K and Phosphate Home this afternoon Acute Malaria Case discussed with Dr. 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 ID on board-appreciate input Could not tolerate the atovaquone-proguanil due to nausea/vomiting Cardiovascular has been changed to IV quinidine and IV doxycycline Clinically better but complains of generalized weakness Antibiotics changed to oral We will finish the course as per ID recommendation Antimalarial as per ID UTI UA positive for nitrite/leukocytes/bacteria Febrile with elevated procalcitonin On IV Rocephin day #3 Urine cx growth more than 3 organisms (contamination) Antibiotic discontinued MARCIO-secondary to dehydration and malarial infection Creatine on admission 1.3 Creatine 1.2 today Olmesartan/HCTZ on hold Creatinine is at baseline A little worse likely due to use of Lasix Elevated Liver enzymes Due to Acute illness Continue monitor Liver enzymes Avoid hepatotoxic agents LFTs are fluctuating at this time Not getting any worse Hyponatremia Mostly Due To acute illness corrected Hyperglycemia HbA1C 6.3 Will discuss about lifestyles modification Check Hba1c in 3 to 6 months . HTN BP stable' Olmesartan/HCTZ on hold due to elevate creatine Continue monitor BMP Thrombocytopenia Secondary to malarial illness. Platelet 48 Monitor CBC DVT px on SCDs CODE STATUS FULL CODE DISPOSITION Request PT OT evaluation Ready to be discharged Vital Signs: Date Time Temp Pulse Resp B/P (MAP) Pulse Ox O2 Delivery O2 Flow Rate FiO2 01/10/18 11:07 36.8 75 16 159/94 (115) 94 Room Air 01/10/18 08:00 Room Air 01/10/18 07:04 37.0 78 20 144/90 (108) 93 Room Air 01/10/18 04:27 37.0 87 20 155/93 (113) 93 Room Air 01/10/18 00:13 37.1 80 20 149/97 (114) 93 Room Air 01/10/18 00:00 Room Air 01/09/18 20:14 36.9 81 16 136/87 (103) 93 Room Air 01/09/18 16:11 90 147/97 (114) 01/09/18 16:00 Room Air 01/09/18 15:33 37.0 83 20 163/104 (123) 92 Room Air Lab Results: Results Past 24 Hours Test 01/10/18 06:33 Range/Units White Blood Count 10.58 4.8-10.8 K/uL Red Blood Count 3.28 4.2-5.4 M/uL Hemoglobin 9.6 12.0-16.0 g/dL Hematocrit 28.2 37-47 % Mean Corpuscular Volume 86.0 80-100 fL Mean Corpuscular Hemoglobin 29.3 25-34 pg Mean Corpuscular Hemoglobin Concent 34.0 32-36 g/dl Platelet Count 117 130-400 K/uL Mean Platelet Volume 12.0 7.4-10.4 fL RDW Standard Deviation 46.9 36.4-46.3 fL RDW Coefficient of Variation 14.8 11.5-14.5 % Neutrophils % (Manual) 36.0 % Lymphocytes % (Manual) 42.9 % Monocytes % (Manual) 9.6 % Eosinophils % (Manual) 4.4 % Basophils % (Manual) 1.8 % Metamyelocytes % 0.9 % Myelocytes % 3.5 % Promyelocytes % 0.9 % Neutrophils # (Manual) 3.81 1.4-6.5 K/uL Total Absolute Neutrophils 3.81 1.4-6.5 K/uL Lymphocytes # (Manual) 4.54 1.2-3.4 K/uL Total Absolute Lymphocytes 4.54 1.2-3.4 K/uL Monocytes # (Manual) 1.02 0.11-0.59 K/uL Eosinophils # (Manual) 0.47 0-0.5 K/uL Basophils # (Manual) 0.19 0-0.2 K/uL Metamyelocytes # 0.10 0-0 K/uL Myelocytes # 0.37 0-0 K/uL Promyelocytes # 0.10 0-0 K/uL Toxic Vacuolation 3+ Large Platelets 1+
[2018-01-10] MEDS ORDERED: POTASSIUM CHLORIDE 10 MEQ TABCR PO ONE (13:30)
[2018-01-10] MEDS ORDERED: FUROSEMIDE INJ 20 MG in SYRINGE 0 ML IV ONE (13:30)
[2018-01-10 14:26] VITALS: BP 159/94; PULSE 75; TEMP 36.8; O2SAT 94
[2018-01-10 14:53] VITALS: BP 154/98; PULSE 73; TEMP 36.3; O2SAT 93
[2018-01-10] MEDS ORDERED: DXY100 PO (15:00)
--- NOTE | 2018-01-10 15:03 | Discharge Instructions ---
Discharge Instructions Date of Service Jan 10, 2018. Admission Reason for Admission: Sepsis Discharge Discharge Diagnosis / Problem: Sepsis,Acute Malaria due to Plasmodium species Discharge Goals Goal(s): Prevent Disease Progression Activity Recommendations Activity Limitations: resume your previous activity . Instructions / Follow-Up Instructions / Follow-Up Please make an appointment with your PCP in 1 week Current Hospital Diet Patient's current hospital diet: AHA Diet (Heart Healthy) Discharge Diet Recommended Diet: AHA Diet (Heart Healthy) Pending Studies Studies pending at discharge: no Laboratory Results Hemoglobin A1c Test 01/05/18 07:56 Range/Units Estimated Average Glucose 134 mg/dl Hemoglobin A1c 6.3 H 4.5-5.6 % Medical Emergencies . Who to Call and When: Medical Emergencies: If at any time you feel your situation is an emergency, please call 911 immediately. . Non-Emergent Contact Non-Emergency issues call your: Primary Care Provider . Past History Medical & Surgical History: (1) Sepsis (2) Malaria (3) Hyponatremia (4) UTI (urinary tract infection) (5) Acute hepatitis (6) HTN (hypertension) . "Provider Documentation" section prepared by Anastasia Graham. .
--- NOTE | 2018-01-11 08:05 | Discharge Summary ---
Discharge Summary Date of Service Jan 11, 2018. Discharge Summary Admission Date: Jan 04, 2018 at 21:37 Discharge Date: Jan 10, 2018 Discharge Disposition: Home Principal Diagnosis: Sepsis,Acute Malaria due to Plasmodium species Secondary Diagnoses/Problems: Please see H&P and Hospital; progress note Consultations: ID Medication Reconciliation New Medications: Doxycycline Hyclate (Doxycycline Hyclate) 100 Mg Cap 100 MG PO BID for 3 Days, #6 CAP Continued Medications: Montelukast Sodium (Singulair) 10 Mg Tab 10 MG PO DAILY, TAB Olmesartan/Hctz (Benicar Hct 20/12.5) Tab 1 TAB PO DAILY, TAB Admission Information HPI (per Admitting provider): DATE OF ADMISSION: 01/04/2018 PRIMARY CARE DOCTOR: Dr. Ulloa CHIEF COMPLAINT: Fever, weakness. HISTORY OF PRESENT ILLNESS: History was obtained from the patient and records. Medical history significant for hypertension. Patient traveled to [facility] about 3 weeks ago to accompany her to a speaking engagement. She did not take prescribed malaria prophylaxis. Exposed to [place] bites. About 2 days ago, patient felt sick on the plane en route for home. Generalized weakness, generalized headache, nasal drainage. No cough, no chest pain, no shortness of breath, emesis, upper achy abdominal discomfort. Denies bladder discomfort, but urine very dark. At the Emergency Room, Patient received ceftriaxone and Plaquenil. MEDICAL HISTORY: As above. OPERATIONS: Hysterectomy, oophorectomy, appendectomy. HOME MEDICATIONS: Include Benicar, HCTZ, Singulair. ALLERGIES: FLAGYL. FAMILY HISTORY: Hypertension. PERSONAL SOCIAL HISTORY: Nonsmoker, no chronic intake of alcoholic beverages. Retired realtor. Originally from [facility]. REVIEW OF SYSTEMS: As per HPI, all 10 systems reviewed, all other ROS negative. PHYSICAL EXAMINATION: VITAL SIGNS: Blood pressure was noted to be 130/82, pulse rate 117 later 86, RR 20, T 37 O2 sats 94 on room air. GENERAL: Noted to be obese, slightly uncomfortable, in no respiratory distress. SKIN: Normal color. Warm. HEENT: [place] palpebral conjunctivae. No ptosis. Dry mucosa. NECK: Short, supple. CHEST: Decreased effort, no tenderness. HEART: Regular rate and rhythm, no murmur. ABDOMEN: upper abdominal tenderness. Some distention. EXTREMITIES: No edema, no tenderness, no gross deformities. NEUROLOGIC: Coherent, no facial asymmetry. No gross focality. LABS: Hemoglobin was noted to be 14.5, hematocrit 46.2, platelets noted to be 58. WBC 10, Sodium 128, potassium 2.9, CO2 is 25, creatinine 1.32, glucose 127, total bilirubin 3.6, direct bili being 2.6, albumin 2.3, AST 133, ALT 112. CK 676. Peripheral smear for parasites noted malaria type organisms. No greater than 1% of erythrocytes contain a ring form organism. UA, nitrite positive. CT head no acute pathology CT abdomen pelvis colonic diverticulosis, hepatic steatosis. ASSESSMENT: 1. Sepsis multifactorial : acute malarial illness (recent travel to endemic country) possible urinary tract infection. 2. Hyponatremia, hypokalemia, ARF, secondary to illness, home meds 3. HTN, stable 4. hyperglycemia, rule out DM. 5. Thrombocytopenia secondary to sepsis . PLAN: GMF CS, IV Ceftriaxone for now for possible UTI. ID consult. RE Acute malaria (ER provider of any touch with Dr. Damon.) Antimalarial treatment as outlined by ID. (Hydroxychloroquine course plus Primaquine.) Monitor creatinine response to IVF Appropriate to hold home ACEI/diuretics until creatinine at baseline. Replace potassium Check hemoglobin A1c DVT prophylaxis, SCDs RE thrombocytopenia Full code. Dictated: 01/04/[id number] Transcribed: 01/04/[id number] <Electronically signed by Tao Omalley M.D.> Signed: 01/05/18 1654 ES Tao Omalley M.D. Hospital Course Sepsis;;Possible related to UTI vs Malaria Meet Sepsis criteria on admission Present with fever, tachycardia, UTI on admission Elevated prolactin on admission ,Lactic acid normal Blood cx no growth Urine cx growth more than 3 organisms (contamination) IV Rocephin was added for probable UTI and later on discontinued Clinically better but remains generally weak May have fluid overload with 6 kg weight gain since admission-discontinue IV fluid We will try Lasix 60 mg IV 1 -01/09 Supplemental potassium Clinically much better Try 20 of Lasix IV today Supplement K and Phosphate Home this afternoon Acute Malaria Case discussed with Dr. 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 ID on board-appreciate input Could not tolerate the atovaquone-proguanil due to nausea/vomiting Cardiovascular has been changed to IV quinidine and IV doxycycline Clinically better but complains of generalized weakness Antibiotics changed to oral We will finish the course as per ID recommendation Antimalarial as per ID UTI UA positive for nitrite/leukocytes/bacteria Febrile with elevated procalcitonin On IV Rocephin day #3 Urine cx growth more than 3 organisms (contamination) Antibiotic discontinued MARCIO-secondary to dehydration and malarial infection Creatine on admission 1.3 Creatine 1.2 today Olmesartan/HCTZ on hold Creatinine is at baseline A little worse likely due to use of Lasix Elevated Liver enzymes Due to Acute illness Continue monitor Liver enzymes Avoid hepatotoxic agents LFTs are fluctuating at this time Not getting any worse Hyponatremia Mostly Due To acute illness corrected Hyperglycemia HbA1C 6.3 Will discuss about lifestyles modification Check Hba1c in 3 to 6 months . HTN BP stable' Olmesartan/HCTZ on hold due to elevate creatine Continue monitor BMP Thrombocytopenia Secondary to malarial illness. Platelet 48 Monitor CBC DVT px on SCDs CODE STATUS FULL CODE DISPOSITION Request PT OT evaluation Ready to be discharged Total time spent on discharge = This includes examination of the patient, discharge planning, medication reconciliation, and communication with other providers. Discharge Instructions Date of Service Jan 10, 2018. Admission Reason for Admission: Sepsis Discharge Discharge Diagnosis / Problem: Sepsis,Acute Malaria due to Plasmodium species Discharge Goals Goal(s): Prevent Disease Progression Activity Recommendations Activity Limitations: resume your previous activity . Instructions / Follow-Up Instructions / Follow-Up Please make an appointment with your PCP in 1 week Current Hospital Diet Patient's current hospital diet: AHA Diet (Heart Healthy) Discharge Diet Recommended Diet: AHA Diet (Heart Healthy) Pending Studies Studies pending at discharge: no Laboratory Results Hemoglobin A1c Test 01/05/18 07:56 Range/Units Estimated Average Glucose 134 mg/dl Hemoglobin A1c 6.3 H 4.5-5.6 % Medical Emergencies . Who to Call and When: Medical Emergencies: If at any time you feel your situation is an emergency, please call 911 immediately. . Non-Emergent Contact Non-Emergency issues call your: Primary Care Provider . Past History Medical & Surgical History: (1) Sepsis (2) Malaria (3) Hyponatremia (4) UTI (urinary tract infection) (5) Acute hepatitis (6) HTN (hypertension) . "Provider Documentation" section prepared by Anastasia Graham. . <Electronically signed by Anastasia Graham M.D.> Signed: 01/10/18 4749 Additional Copies To Farrukh Asher M.D.
[2018-01-12] MEDS ORDERED: HYDROXYCHLOROQUINE SULFATE 200 MG TAB PO ONE (02:00)
== END 2018-01-10 17:52 | disposition home or self-care (01) | DRG 872 ==
LOC: C.EDB 15:59 → C.MS2W 21:37 → ENRESERV 21:42 → C.MED 01-07 22:13
PROVIDERS: ADMIT Internal Medicine; ATTEND Internal Medicine
DX: A41.89 Other specified sepsis (principal); A00-B99 Certain infectious and parasitic diseases; I10 Essential (primary) hypertension; N39.0 Urinary tract infection, site not specified; E87.1 Hypo-osmolality and hyponatremia; N17.9 Acute kidney failure, unspecified; D69.59 Other secondary thrombocytopenia; R73.9 Hyperglycemia, unspecified; E87.6 Hypokalemia; Z88.8 Allergy status to other drugs, medicaments and biological substances; E86.0 Dehydration; R65.20 Severe sepsis without septic shock